=== PATIENT | female | born 1960 | race Caucasian/White ===

== ENCOUNTER 2024-02-05 10:07 | Emergency (ER) | payer OTHER, SELFPAY ==
--- NOTE | ~2024-02-05 | CT_ITS ---
CT of the Abdomen and Pelvis: Indication: Abdominal pain Technique: 2.5 mm axial scans were obtained through the abdomen and pelvis following intravenous adm inistration of 100 cc of Omnipaque 350. Dose reduction technique was used on this scan by utilizing a utomated exposure control and iterative reconstruction technique. The dose-length product (DLP) was 1 87.50 mGy-cm. Findings: Scans through the lung bases are unremarkable. Minimal pericardial effusion present. Small hepatic cysts are present. The spleen, pancreas, gallbladder, adrenals and kidneys are within n ormal limits. No evidence of aortic aneurysm. No lymphadenopathy. No bowel obstruction or bowel wall thickening. There is no evidence to suggest acute appendicitis. Images through the pelvis were performed. Urinary bladder unremarkable. No pelvic mass seen. Trace pe lvic ascites. Impression: Minimal pericardial effusion, otherwise unremarkable exam. Reviewed, dictated and finalized at location . Impression: Minimal pericardial effusion, otherwise unremarkable exam.
[2024-02-05 10:11] VITALS: BP 129/85; PULSE 67; RESP 18; TEMP 36.6; O2SAT 100
[2024-02-05 10:17] VITALS: BP 129/85; PULSE 62; RESP 13; O2SAT 98
[2024-02-05 10:26] LABS: Basophils Percent Auto 0.4 % (0.2-1.2); Eosinophils Absolute Auto 0.1 K/mm3 (0-0.3); Eosinophils Percent Auto 1.9 % (0-4.4); Hemoglobin 13.7 g/dL (12.0-15.0); Immature Granulocyte Absolute 0.01 K/mm3 (0.00-0.031); Immature Granulocyte Percent A 0.2 % (0-0.5); Lymphocytes Absolute Auto 1.88 K/mm3 (0.9-3.2); Lymphocytes Percent Auto 35.7 % (18.3-44.2); Mean Corpuscular HGB Conc 32.6 g/dl (32-36); Mean Corpuscular Volume 88.8 fl (80-100); Mean Platelet Volume 9.3 fl (7.4-10.4); Monocytes Absolute Auto 0.4 K/mm3 (0.1-0.6); Monocytes Percent Auto 8.2 % (2.6-8.5); Neutrophils Absolute Auto 2.8 K/mm3 (1.3-6.7); Neutrophils Percent Auto 53.6 % (45.5-73.1); Platelet Count Result 235 k/mm3 (150-375); Red Blood Count 4.73 M/mm3 (4.2-5.4); Red Cell Distribution Width 13.8 % (11.5-14.5); White Blood Count 5.3 K/mm3 (4.5-10.0)
[2024-02-05 10:34] LABS: Alanine Aminotransferase 10 U/L (6-35); Albumin Level 4.6 g/dL (3.5-5.1); Alkaline Phosphatase 47 U/L (38-126); Anion Gap 6 mmol/L (4-12); Aspartate Amino Transferase 24 U/L (14-36); Bilirubin,Total 0.5 mg/dL (0.2-1.3); Blood Urea Nitrogen 15 mg/dL (7-17); Calcium 9.7 mg/dL (8.4-10.2); Carbon Dioxide 28 mmol/L (22-30); Chloride 108 mmol/L (98-107); Estimated CRCL calculation 66 ml/min; Estimated Glomerular Filt Rate > 60; Glucose 91 mg/dL (65-110); Potassium 3.9 mmol/L (3.4-5.0); Sodium 142 mmol/L (137-145)
--- NOTE | 2024-02-05 10:35 | ED.GENADULT ---
HPI - General Adult General Chief complaint: Abdominal Pain Stated complaint: left flank pain Time Seen by Provider: 02/05/24 10:13 History of Present Illness HPI narrative: This is a 63-year-old female presenting with left upper quadrant abdominal pain. Pain started 2 days ago. It is a pain in the left upper quadrant. is worse with movement. It is worse when she pushes on her left rib cage. She denies any falls or impacts that she is aware of. She has no other symptoms such as fever chills nausea vomiting diarrhea chest pain difficulty breathing. She has not taken anything for pain control. Related Data Allergies Allergy/AdvReac Type Severity Reaction Status Date / Time No Known Allergies Allergy Unverified 10/22/14 23:44 [facility] Social History Social History Smoking status: Never smoker Alcohol intake: never Exam Narrative: APPEARANCE: No apparent distress. Head: atraumatic. EYES: EOMI, NOSE: Atraumatic NECK: Trachea midline RESPIRATORY: No increased rate of breathing, CTAB CARDIOVASCULAR: RRR, no peripheral edema ABDOMINAL: Tenderness palpation over the left ribcage at ribs 789. patient reports pain with movement. Abdomen is soft nontender no guarding rebound. MUSCULOSKELETAl: No obvious deformities NEURO: Alert. Moving 4/4 extremities SKIN:: Warm, dry. Normal color PSYCHIATRIC: Normal affect Course Vital Signs Vital signs: Vital Signs Temperature 97.8 F 02/05/24 10:11 Pulse Rate 67 02/05/24 10:11 Respiratory Rate 18 02/05/24 10:11 Blood Pressure 129/85 02/05/24 10:11 Pulse Oximetry 100 02/05/24 10:11 Oxygen Delivery Room Air 02/05/24 10:11 Temperature 97.8 F 02/05/24 10:11 Pulse Rate 62 02/05/24 10:17 Respiratory Rate 13 02/05/24 10:17 Blood Pressure 129/85 02/05/24 10:17 Pulse Oximetry 98 02/05/24 10:17 Oxygen Delivery Room Air 02/05/24 10:11 Medical Decision Making [facility] Narrative Medical decision making narrative: -Course: 63-year-old female presenting with left-sided abdominal/rib pain. Vital signs stable. Laboratory studies within normal limits. CT abdomen pelvis unremarkable. Patient declined pain medication. Results were discussed with the patient she is comfortable going home and taking [id number] pain medication. I discussed return precautions with both the patient and her . Follow-up with primary care physician. -DDX includes but is not limited to: Neoplasm, splenic infarct, , gastritis, MSK pain, PNA, -Co-morbidities complicating care: hyperlipidemia, breast cancer -Independent interpretation of studies: Labs reviewed within normal limits. CT abdomen pelvis unremarkable. -Shared decision making / Disposition: discharge Vital Signs Vital Signs: Vital Signs Temperature 97.8 F 02/05/24 10:11 Pulse Rate 67 02/05/24 10:11 Respiratory Rate 18 02/05/24 10:11 Blood Pressure 129/85 02/05/24 10:11 Pulse Oximetry 100 02/05/24 10:11 Oxygen Delivery Room Air 02/05/24 10:11 Temperature 97.8 F 02/05/24 10:11 Pulse Rate 62 02/05/24 10:17 Respiratory Rate 13 02/05/24 10:17 Blood Pressure 129/85 02/05/24 10:17 Pulse Oximetry 98 02/05/24 10:17 Oxygen Delivery Room Air 02/05/24 10:11 Lab Data 02/05/24 10:18 02/05/24 10:18 Labs: Lab Results 02/05/24 02/05/24 Range/Units 10:18 11:24 WBC 5.3 (4.5-10.0) K/mm3 RBC 4.73 (4.2-5.4) M/mm3 Hgb 13.7 (12.0-15.0) g/dL Hct 42.0 (37.0-47.0) % MCV 88.8 (80-100) fl MCH 29.0 (26-34) pg MCHC 32.6 (32-36) g/dl RDW 13.8 (11.5-14.5) % Plt Count 235 (150-375) k/mm3 MPV 9.3 (7.4-10.4) fl Immature Gran % (Auto) 0.2 (0-0.5) % Neut % (Auto) 53.6 (45.5-73.1) % Lymph % (Auto) 35.7 (18.3-44.2) % Stanley % (Auto) 8.2 (2.6-8.5) % Eos % (Auto) 1.9 (0-4.4) % Baso % (Auto) 0.4 (0.2-1.2) % Lymp
[2024-02-05 10:39] LABS: Appearance Urine Clear (Clear); Bacteria Urine None Seen /hpf; Bilirubin Urine Negative (Negative); Blood Urine Negative (Negative); Color Urine Yellow (Yellow); Glucose Urine UA Negative (Negative); Ketones Urine 1+ mg/dL (Negative); Leukocyte Esterase Ur Trace LEU/UL (Negative); Need Manual Microscopic Reviewed; Nitrate Urine Negative (Negative); Non Pathogenic Casts 0-2; Protein Urine Trace mg/dL (Negative); Specific Grav Ur 1.027 (1.001-1.035); Squamous Epithelial Cell Urine None Seen /hpf (Few); WBC Urine 0-5 /hpf (0-3)
[2024-02-05 10:40] LABS: Add Urine Microscopic? YES
[2024-02-05 11:39] LABS: Lactic Acid Reflex 0.8 mmol/L (0.7-2.0)
[2024-02-05 12:20] VITALS: BP 124/80; PULSE 53; RESP 16; O2SAT 100
== END 2024-02-05 12:20 | disposition home or self-care (01) ==
PROVIDERS: Emergency Provider Emergency Medicine
DX: R07.81 Pleurodynia (principal); R10.12 Left upper quadrant pain
CPT/HCPCS: 36415; 74177; 80053; 81001; 83605; 85025; 99284; Q9967

== ENCOUNTER 2024-11-13 10:44 | Emergency (ER) | payer OTHER, SELFPAY ==
--- NOTE | ~2024-11-13 | XR_ITS ---
XR wrist LT min 3V Ordering provider: Tyron Manzano MD History: . fall . Comparison: None. FINDINGS: BONES: Undisplaced fracture is seen in the distal metaphysis of the radius. Fracture in the ulnar sty loid is also noted. JOINT SPACES: Well maintained. SOFT TISSUES: Normal. IMPRESSION: Undisplaced fracture in the distal metaphysis of the left radius. Fracture ulnar styloid. Reviewed, dictated and finalized at location A. IMPRESSION: Undisplaced fracture in the distal metaphysis of the left radius. Fracture ulna r styloid.
--- OUTSIDE RECORDS SUMMARY | 2024-11-13 10:46 | XMS_ITS | Encounter Summary ---
Author Organization [facility] Address [facility] [place] [address] Care Team Providers Care Mysql Database Administrator Name Role Phone Eddie Lamb MD Primary Care Provider [phone] Encounter Details Date Type Department Care Team (Latest Contact Info) Description 06/30/2024 MyChart Message Enc [facility] [place] [address] [address] [address] [place] [address] [place] [address] [place] [address] [address] [place], [place] [id number] 07/07 Mammogram/Ultrasoun d Appt. Social History Tobacco Use Types Packs/Day Years Used Date Smoking Tobacco: Never Passive Smoke Exposure: Never Smokeless Tobacco: Never Comments:Counseled by Dr. Lien orozco. Alcohol Use Standard Drinks/Week Comments Never 0 (1 standard drink = 0.6 oz pur e alcohol) PHQ-2 Answer Date Recorded Patient Health Questionnaire-2 Score 4 04/19/2024 Comments No Sex and Gender Information Value Date Recorded Sex Assigned at Female 11/02/2024 8:58 AM [employer] PROGRAM DIRECTOR Legal Sex Female 1:23 PM [employer] PROGRAM DIRECTOR Gender Identity Female 11/02/2024 8:58 AM [employer] PROGRAM DIRECTOR Sexual Orientation Straight 11/02/2024 8: 58 AM [employer] PROGRAM DIRECTOR documented as of this encounter Plan of Treatment Upcoming Encounters Date Type Department Care Team (Late st Contact Info) Description 12/28/2024 12:30 PM CDT Appointment [facility] [place] [address] George Leonard MD [address] [place] [address] documented as of this encounter Visit Diagnoses Not on filedocumented in this encounter Additional Health Concerns Assessment Noted Time PHQ-9 Depression Total Score: 11 024 9:25 AM CDT documented as of this encounter Care Teams Mysql Database Administrator Relationship Specialty Start Date End Date Eddie Lamb MD [address] [facility] [address] [place] [address] PCP - General INTERNAL MEDICINE 10/19/23 documented as of this encounter
--- OUTSIDE RECORDS SUMMARY | 2024-11-13 10:46 | XMS_ITS | Clinical Summary ---
Author Organization [facility] [address] Address [address] [place] [phone] Care Team Providers Care Maxillofacial Pathology Name Role Phone George Leonard MD Unavailable [phone] Marii Aaron MD Unavailable [phone] Stiven Collins DO Unavailable [phone] Eddie Lamb MD Primary Care Provider [phone] Madison Stone MD Unavailable [phone] Allergies No known active allergies Medications ALPRAZolam (XANAX) 0.5 mg tablet Take 1 tablet (0.5 mg total) by mouth nightly as needed 02/10/2024 Active sertraline (ZOLOFT) 25 mg tablet Take 1 tablet (25 mg total) by mouth daily 02/10/2024 Active hydrOXYzine (ATARAX) 25 mg tablet 08/05/2024 Active Active Problems Problem Noted Date Diagnosed Date Prevention of chemotherapy-induced neutropenia 1 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 Oncology [address] [place] [phone] Kathy Jacobson RN Encounter for care related to vascular access port (Primary Dx); Malignant neoplasm of lower-inner quadrant of left breast in female, estrogen receptor negative (HCC) 08/29/2024 11:24 AM EMISSIONS TESTING AND REPAIR TECHNICIAN - 08/29/2024 11:59 PM EMISSIONS TESTING AND REPAIR TECHNICIAN Hospital Encounter [facility] Medical Office Building [address] [place] [id number] Malignant neoplasm of lower-inner quadrant of left breast in female, estrogen receptor negative (HCC) Discharge Disposition: Discharge to home or self care 08/15/2024 9:00 AM EMISSIONS TESTING AND REPAIR TECHNICIAN Infusion [facility] at [address] [place] [phone] Prevention of chemotherapy-induce d neutropenia (Primary Dx); Malignant neoplasm of lower-inner quadrant of left breast in female, estrogen receptor negative (HCC) 08/15/2024 8:30 AM EMISSIONS TESTING AND REPAIR TECHNICIAN Clinical Support [address] [address] Malignant neoplasm of lower-inner quadrant of left breast in female, estrogen receptor negative (HCC); Prevention of chemotherapy-induce d neutropenia from Last 3 Months Surgical History Surgery Date Site/Laterality Comments APPENDECTOMY 08/31/1980 - 08/30/1981 BREAST SURGERY 08/31/2006 - 08/30/2007 Bilateral augmentation MASTECTOMY Left PORTACATH PLACEMENT Medical History Medical History Date Comments Breast pain, right 12/29/2023 Mass of left breast 12/29/2023 Mixed hyperlipidemia 10/23/2023 Breast cancer (HCC) Depression Family History Medical History Relation Name Comments Smoke inhalation Father No Known Problems Maternal Grandfather No Known Problems Maternal Grandmother No Known Problems Mother Liver cancer Mother's Brother Stomach cancer Mother's Sister 1 Stomach cancer Mother's Sister 2 No Known Problems Paternal Grandfather No Known Problems Paternal Grandmother Relation Name Status Comments Father Maternal Grandfather Maternal Grandmother Mother Alive Mother's Brother Mother's Sister 1 Mother's Sister 2 Paternal Grandfather Paternal Grandmother Social History Tobacco Use Types Packs/Day Years Used Date Smoking Tobacco: Never Smokeless Tobacco: Never Tobacco Cessation:Counseling Given: Not Answered AUDIT-C Answer Date Recorded Q1: How often do you have a drink containing alcohol? Never 11/03/2024 Q2: How many drinks containi ng alcohol do you have on a typical day when you are drinking? Patient does not drink Q3: How often do you have si x or more drinks on one occasion? Never 11/03/2024 Personal Safety Answer Date Recorded Have you ever been in or are you currently in a harmful physical or emotional relationship or is someone making you feel afraid or unsafe? Denies 05/13/2024 Comments No Sex and Gender Information Value Date Recorded Sex Assigned at Not on file Legal Sex Female 4:27 PM EMISSIONS TESTING AND REPAIR TECHNICIAN Gender Identity Female 04/04/2024 8:02 PM CDT Sexual Orientation Straight 04/04/2024 8: 02 PM CDT 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 file Not on file Not on file Obstetrics History Last Filed Vital Signs Vital Sign Reading Time Taken Comments Blood Pressure 122/75 08/15/2024 9:03 AM EMISSIONS TESTING AND REPAIR TECHNICIAN Pulse 97 08/15/2024 9:03 AM EMISSIONS TESTING AND REPAIR TECHNICIAN Temperature 36.6 C (97.9 F) 08/15/2024 9:03 AM EMISSIONS TESTING AND REPAIR TECHNICIAN Respiratory Rate 16 08/15/2024 9:03 AM EMISSIONS TESTING AND REPAIR TECHNICIAN Oxygen Saturation 98% 08/15/2024 9:03 AM EMISSIONS TESTING AND REPAIR TECHNICIAN Inhaled Oxygen Concentration - - Weight 51 kg (112 lb 7 oz) 11/03/2024 9:38 AM CS T Height 162.6 cm (5' 4 ) 11/03/2024 9:38 AM EMISSIONS TESTING AND REPAIR TECHNICIAN Body Mass Index 19.3 11/03/2024 9:38 AM EMISSIONS TESTING AND REPAIR TECHNICIAN Plan of Treatment Upcoming Encounters Date Type Department Care Team (Latest Contact Info) Description 11/14/2024 11:10 AM CDT Hospital Encounter [address] [address] George Leonard MD [address] [place] [phone] 11/14/2024 11:10 AM CDT Anesthesia Event [facility] OR [address] [place] [address] Paul Monte MD [address] [address] 11/14/2024 11:10 AM CDT - 11/14/2024 12:10 PM CDT Surgery [facility] OR [address] [place] [address] George Leonard MD [address] [place] [phone] REMOVAL PORT A CATH Scheduled Procedures Name Priority Associated Diagnoses Date/Ti me REMOVAL PORT A CATH NON USE 11/14/2024 11:10 AM CDT Health Maintenance Due Date Last Done Comments Cervical Cancer Screening 1960 Colon Cancer Screening-Colonoscopy 1960 Depression Screening 1960 Hepatitis C Screening 1960 Hepatitis B Screening 1978 Regular Well Visit/Exam 18-64 1978 Zoster Vaccine (1 of 2) 2010 Covid-19 Vaccine (2023-2 5 season) 2024 02/09/2021, 01/19/2021 Influenza Vaccine (#1) 2024 Breast Cancer Screening-Mammogram 12/28/2024 12/29/2023, 12/29/2023 DTaP/Tdap/Td Vaccine (2 - Td or Tdap) 04/19/2034 04/19/2024 Pneumococcal vaccine <65 Aged Out No longer eligible based on patient's age to complete this topic Medical Devices Implanted Type Area Wall To Wall Carpet Installer Device Identifier Shelf Expiration Date Model / Serial / Lot Breast Implant Bilateral: Breast Dom Michael Powerport Mri Airguard 8fr 1 Lumen Attachable Catheter Latex Free [id number] - [id number] Implanted:Qty: 1 on 05/13/2024 by Miguel Rodriguez MD at [facility] Right: Chest Dom [place] [id number] 11/28/2025 [id number] / / [id number] [employer] Billy Sealant Fibrin Patch [place] Set Frozen Prefilled Syringe Artiss 4ml [id number] - [id number] Implanted:Qty: 1 on 05/13/2024 by Miguel Rodriguez MD at [facility] Left: Breast [employer] Billy 08/30/2025 [id number] / / [id number] [employer] Cortiva 9.2x19.2cm [id number] - [id number] - [id number] Implanted:Qty: 1 on 05/13/2024 by Miguel Rodriguez MD at [facility] Left: Breast [employer] [id number] 03/30/2029 [id number] / [id number] / [id number] [employer] Cortiva 9.2x19.2cm [id number] - [id number] - [id number] Implanted:Qty: 1 on 05/13/2024 by Miguel Rodriguez MD at [facility] Left: Breast [employer] [id number] 03/30/2029 [id number] / [id number] / [id number] [employer] Implant Breast Round Moderate Projection Plus Smooth Opus Luxe 305cc Silicone Gel [id number] - [id number] - [id number] Implanted:Qty: 1 on 05/13/2024 by Miguel Rodriguez MD at [facility] Left: Breast [employer] [id number] 11/16/2025 [id number] / [id number] / Procedures Procedure Name Priority Date/Time Associated Diagnosis Comments CT CHEST ABDOMEN PELVIS W CONTRAST Schedule Routine, Read Routine (OP Routine) 08/29/2024 11:40 AM EMISSIONS TESTING AND REPAIR TECHNICIAN Malignant neoplasm of lower-inner quadrant of left breast in female, estrogen receptor negative (HCC) EGFR STAT 08/15/2024 8:52 AM EMISSIONS TESTING AND REPAIR TECHNICIAN Malignant neoplasm of lower-inner quadrant of left breast in female, estrogen receptor negative (HCC) Prevention of chemotherapy-induc ed neutropenia DIFFERENTIAL AUTO STAT 08/15/2024 8:5 2 AM EMISSIONS TESTING AND REPAIR TECHNICIAN Malignant neoplasm of lower-inner quadrant of left breast in female, estrogen receptor negative (HCC) Prevention of chemotherapy-induc ed neutropenia CBC WITH AUTO DIFFERENTIAL STAT 08/15/2024 8:52 AM EMISSIONS TESTING AND REPAIR TECHNICIAN Malignant neoplasm of lower-inner quadrant of left breast in female, estrogen receptor negative (HCC) Prevention of chemotherapy-induc ed neutropenia COMPREHENSIVE METABOLIC PANEL STAT 08/15/2024 8:52 AM EMISSIONS TESTING AND REPAIR TECHNICIAN Malignant neoplasm of lower-inner quadrant of left breast in female, estrogen receptor negative (HCC) Prevention of chemotherapy-induc ed neutropenia from Last 3 Months Results * CT Chest Abdomen Pelvis W Contrast (08/29/2024 11:40 AM EMISSIONS TESTING AND REPAIR TECHNICIAN) Anatomical Region Laterality Modality Body N/A Computed Tomogra phy 09/02/2024 1:41 PM EMISSIONS TESTING AND REPAIR TECHNICIAN Narrative 09/02/2024 1:48 PM EMISSIONS TESTING AND REPAIR TECHNICIAN EXAM DESCRIPTION: CT CHEST ABDOMEN PELVIS W CONTRAST REASON FOR STUDY: monitoring breast cancer Monitoring breast cancer. Finished chemo 2 weeks ago per pt. No complaints. Hx of left mastectomy, appy. TECHNIQUE: CT scan of the chest, abdomen, and pelvis performed with intravenous and without oral contrast using helical scanning technique with dynamic intravenous contrast injection. Reconstructed coronal and sagittal MPR images reviewed. All images stored on PACS. Automated exposure control was used as a dose optimization technique for this examination. CONTRAST TYPE/DOSE: 100mL of IOVERSOL 350 MG IODINE/ML INTRAVENOUS SYRINGE injected via intravenous COMPARISON: None available FINDINGS: CHEST LUNGS: 3 mm nodule right lower lobe. Image 74 series 2. Probably benign. No suspicious nodule. Recommendations based on Fleischner society guidelines, in both high and low risk patients. No pneumonia. PLEURA: No effusion. No pneumothorax. MEDIASTINUM/SAEID: No identified masses or abnormal nodes. HEART: Heart size is normal with no pericardial effusion. VASCULATURE CHEST: No thoracic aortic aneurysm or dissection. AXILLA: No adenopathy. CHEST WALL: Bilateral breast implants. HARDWARE/LINES/TUBES: Right port catheter with the tip extending to the SVC. MUSCULOSKELETAL CHEST: No significant abnormality. ABDOMEN/PELVIS LIVER: Hemangioma in hepatic segment 8. There are few small cysts within the liver and too small to characterize hypoattenuating lesions likely cysts. GALLBLADDER: Normal BILE DUCTS: No intrahepatic or extrahepatic ductal dilatation. SPLEEN: Normal size. No focal lesions. PANCREAS: No identified cystic or solid masses. No significant calcifications. No adjacent inflammation or peripancreatic fluid collections. Pancreatic duct not dilated. ADRENALS: Normal. KIDNEYS/URINARY TRACT: No identified significant cystic or solid masses. No visualized stones. No hydronephrosis or hydroureter. Symmetric enhancement. Urinary bladder is unremarkable. GI: No dilated bowel loops. No obvious wall thickening. Normal appendix. No significant diverticular disease. PERITONEUM: No ascites or free air. RETROPERITONEUM: No mass or adenopathy. REPRODUCTIVE: No significant abnormality. VASCULATURE ABDOMEN: No abdominal aortic aneurysm. MUSCULOSKELETAL ABDOMEN PELVIS: Small hemangioma in L5. No suspicious osseous lesion. OTHER: No significant abnormality. IMPRESSION: No acute abnormality. THIS IS AN ELECTRONICALLY VERIFIED FINAL REPORT 09/02/2024 1:48 PM - Electronically signed by Jose J Reno M.D. KN: [email or web address] Report ID: [id number] Reading Location: [id number] Procedure Note Jose J Reno MD - 09/02/2024 EXAM DESCRIPTION: CT CHEST ABDOMEN PELVIS W CONTRAST REASON FOR STUDY: monitoring breast cancer Monitoring breast cancer. Finished chemo 2 weeks ago per pt. Nocomplaints. Hx of left mastectomy, appy. TECHNIQUE: CT scan of the chest, abdomen, and pelvis performed with intravenous and without oral contrast using helical scanning techniquewith dynamic intravenous contrast injection. Reconstructed coronal and sagittalMPR images reviewed. All images stored on PACS. Automated exposure control was used as a dose optimization technique for this examination. CONTRAST TYPE/DOSE: 100mL of IOVERSOL 350 MG IODINE/ML INTRAVENOUS SYRINGE injected via intravenous COMPARISON: None available FINDINGS: CHEST LUNGS: 3 mm nodule right lower lobe. Image 74 series 2. Probablybenign. No suspicious nodule. Recommendations based on Fleischner society guidelines, in both high andlow risk patients. No pneumonia. PLEURA: No effusion. No pneumothorax. MEDIASTINUM/SAEID: No identified masses or abnormal nodes. HEART: Heart size is normal with no pericardial effusion. VASCULATURE CHEST: No thoracic aortic aneurysm or dissection. AXILLA: No adenopathy. CHEST WALL: Bilateral breast implants. HARDWARE/LINES/TUBES: Right port catheter with the tip extending to theSVC. MUSCULOSKELETAL CHEST: No significant abnormality. ABDOMEN/PELVIS LIVER: Hemangioma in hepatic segment 8. There are few small cystswithin the liver and too small to characterize hypoattenuating lesions likelycysts. GALLBLADDER: Normal BILE DUCTS: No intrahepatic or extrahepatic ductal dilatation. SPLEEN: Normal size. No focal lesions. PANCREAS: No identified cystic or solid masses. No significant calcifications. No adjacent inflammation or peripancreatic fluidcollections. Pancreatic duct not dilated. ADRENALS: Normal. KIDNEYS/URINARY TRACT: No identified significant cystic or solid masses.No visualized stones. No hydronephrosis or hydroureter. Symmetricenhancement. Urinary bladder is unremarkable. GI: No dilated bowel loops. No obvious wall thickening. Normalappendix. No significant diverticular disease. PERITONEUM: No ascites or free air. RETROPERITONEUM: No mass or adenopathy. REPRODUCTIVE: No significant abnormality. VASCULATURE ABDOMEN: No abdominal aortic aneurysm. MUSCULOSKELETAL ABDOMEN PELVIS: Small hemangioma in L5. No suspicious osseous lesion. OTHER: No significant abnormality. IMPRESSION: No acute abnormality. THIS IS AN ELECTRONICALLY VERIFIED FINAL REPORT 09/02/2024 1:48 PM - Electronically signed by Jose J Reno M.D. KN: [email or web address] Report ID: [id number] Reading Location: [place] [address] us Stiven Collins DO IMG CT PROCEDURES Final Resu lt * eGFR (08/15/2024 8:52 AM EMISSIONS TESTING AND REPAIR TECHNICIAN) eGFR >90 >=60 mL/min/1. 73 m2 Comment: Interpretive Data Reference Interval Normal >/= 90 mL/min/1.73m2 Mildly decreased* 60 - 89 mL/min/1.73m2 Mildly to moderately decreased 45 - 59 mL/min/1.73m2 Moderately to severely decreased 30 - 44 mL/min/1.73m2 Severely decreased 15 - 29 mL/min/1.73m2 Kidney Failure < 15 mL/min/1.73m2 *Relative to young adult level Estimated glomerular filtration rate is determined by the 2020 CKD-EPI equation recommended by the National Kidney Foundation (A Unifying Approach to GFR Estimation: Recommendations of the NKF-ASK Task Force on Reassessing the Inclusion of Race in Diagnosing Kidney Disease, JASN 2020). The CKD-EPI equation should not be used for patients with unstable renal function and has not been validated in children and those over 70. Current interpretive data was last reviewed 2021. Testing performed by: [address] [address] Blood 08/15/2024 8:52 AM EMISSIONS TESTING AND REPAIR TECHNICIAN 08/15/2024 8:55 AM EMISSIONS TESTING AND REPAIR TECHNICIAN Stiven Collins DO LAB BLOOD ORDERABLES Final R esult [facility] [address] [facility] Department [place] [address] * (ABNORMAL) Differential, auto (08/15/2024 8:52 AM EMISSIONS TESTING AND REPAIR TECHNICIAN) Neutrophil abs 8.3(H) 1.5 - 6.5 K/cumm Comment:Testing performed by : [address] [address] Imm gran abs 0.1 0.0 - 0.1 K/cumm [facility] Comment:Testing performed by : [address] [address] Lymphocyte abs 1.2 0.8 - 3.3 K/cumm [facility] Comment:Testing performed by : [address] [address] Monocyte abs 0.5 0.2 - 0.8 K/cumm [facility] Comment:Testing performed by : [address] [address] Eosinophil abs 0.0 0.0 - 0.5 K/cumm [facility] Comment:Testing performed by : [address] [address] Basophil abs 0.0 0.0 - 0.1 K/cumm [facility] Comment:Testing performed by : [address] [address] Neutrophil pct 82.7 % [facility] Comment: Interpretive Data Percent cell count reference ranges are not reported, since discordance with absolute values may lead to misinterpretation of CBC data. Current Interpretive Data was last revised on 2017. Testing performed by: [address] [address] Imm gran pct 0.6 % [facility] Comment: Interpretive Data Percent cell count reference ranges are not reported, since discordance with absolute values may lead to misinterpretation of CBC data. Current Interpretive Data was last revised on 2017. Testing performed by: [address] [address] Lymphocyte pct 11.9 % [facility] Comment: Interpretive Data Percent cell count reference ranges are not reported, since discordance with absolute values may lead to misinterpretation of CBC data. Current Interpretive Data was last revised on 2017. Testing performed by: [address] [address] Monocyte pct 4.7 % [facility] Comment: Interpretive Data Percent cell count reference ranges are not reported, since discordance with absolute values may lead to misinterpretation of CBC data. Current Interpretive Data was last revised on 2017. Testing performed by: [address] [address] Eosinophil pct 0.0 % [facility] Comment: Interpretive Data Percent cell count reference ranges are not reported, since discordance with absolute values may lead to misinterpretation of CBC data. Current Interpretive Data was last revised on 2017. Testing performed by: [address] [address] Basophil pct 0.1 % [facility] Comment: Interpretive Data Percent cell count reference ranges are not reported, since discordance with absolute values may lead to misinterpretation of CBC data. Current Interpretive Data was last revised on 2017. Testing performed by: [address] [address] Blood 08/15/2024 8:52 AM EMISSIONS TESTING AND REPAIR TECHNICIAN 08/15/2024 8:55 AM EMISSIONS TESTING AND REPAIR TECHNICIAN Stiven Collins DO LAB BLOOD ORDERABLES Final R esult [facility] [address] [facility] Department [place] [address] * (ABNORMAL) CBC with auto differential (08/15/2024 8:52 AM EMISSIONS TESTING AND REPAIR TECHNICIAN) WBC 10.0(H) 3.8 - 9.9 K/cumm Comment:Testing performed by : [address] [address] Hgb 11.2(L) 11.9 - 15.5 g/dL [facility] Comment:Testing performed by : [address] [address] Hct 34.0(L) 35.6 - 45.5 % [facility] Comment:Testing performed by : [address] [address] Plt 270 150 - 400 K/cumm [facility] Comment:Testing performed by : [address] [address] MPV 8.6(L) 9.1 - 12.3 fL [facility] Comment:Testing performed by : [address] [address] RBC 3.95 3.90 - 5.20 M/cumm [facility] Comment:Testing performed by : [address] [address] MCV 86.1 81.3 - 96.4 fL [facility] Comment:Testing performed by : [address] [address] MCH 28.4 27.1 - 33.3 pg [facility] Comment:Testing performed by : [address] [address] MCHC 32.9 32.3 - 35.7 g/dL [facility] Comment:Testing performed by : [facility], [address] [place] [address]., [address] RDW CV 16.8(H) 11.1 - 14.9 % [facility] Comment:Testing performed by : [address] [address] RDW SD 52.2(H) 35.7 - 48.1 fL [facility] Comment:Testing performed by : [address] [address] NRBC abs 0.00 0.00 - 0.01 K/cumm [facility] Comment:Testing performed by : [address] [address] Blood 08/15/2024 8:52 AM EMISSIONS TESTING AND REPAIR TECHNICIAN 08/15/2024 8:55 AM EMISSIONS TESTING AND REPAIR TECHNICIAN Stiven Collins DO LAB BLOOD ORDERABLES Final R esult [facility] Department [place] [address] * (ABNORMAL) Comprehensive metabolic panel (08/15/2024 8:52 AM EMISSIONS TESTING AND REPAIR TECHNICIAN) Sodium 141 135 - 145 mmol/L Comment:Testing performed by : [address] [address] Potassium, pl 3.7 3.3 - 4.9 mmol/L [facility] Comment:Testing performed by : [address] [address] Chloride 106 97 - 110 mmol/L [facility] Comment:Testing performed by : [address] [address] CO2 24 22 - 32 mmol/L [facility] Comment:Testing performed by : [address] [address] Anion gap 11 2 - 15 mmol/L [facility] Comment:Testing performed by : [address] [address] BUN 18 6 - 25 mg/dL [facility] Comment:Testing performed by : [address] [address] Creatinine 0.50(L) 0.60 - 1.10 mg/dL [facility] Comment:Testing performed by : [address] [address] Glucose 186 70 - 199 mg/dL [facility] Comment: Interpretive Data Fasting glucose >/= 126 mg/dl is diagnostic for diabetes. Fasting is defined as no caloric intake for at least 8 hours. Fasting glucose between 100 mg/dl to 125 mg/dl is diagnostic of prediabetes. In a patient with classic symptoms of hyperglycemia or hyperglycemic crisis, a random glucose >/= 200 mg/dl is diagnostic for diabetes. In the absence of unequivocal hyperglycemia, results should be confirmed by repeat testing. The classification and Diagnosis of Diabetes Diabetes Care 2021; 46: S19-S40. Current interpretive data was last revised 2022. Testing performed by: [address] [address] Calcium 9.2 8.5 - 10.3 mg/dL [facility] Comment:Testing performed by : [address] [address] Bilirubin, total 0.2 0.1 - 1.2 mg/dL [facility] Comment:Testing performed by : [address] [address] Protein, pl 6.3(L) 6.5 - 8.5 g/dL [facility] Comment:Testing performed by : [address] [address] Albumin 4.0 3.5 - 5.0 g/dL [facility] Comment:Testing performed by : [address] [address] Alk phos 58 40 - 130 Units/L [facility] Comment:Testing performed by : [address] [address] ALT 12 7 - 45 Units/L [facility] Comment:Testing performed by : [address] [address] AST 13 10 - 45 Units/L [facility] Comment:Testing performed by : [address] [place]., [address] Blood 08/15/2024 8:52 AM EMISSIONS TESTING AND REPAIR TECHNICIAN 08/15/2024 8:55 AM EMISSIONS TESTING AND REPAIR TECHNICIAN Stiven Collins DO LAB BLOOD ORDERABLES Final R esult [facility] [address] [facility] Department [place] [address] from Last 3 Months Insurance [facility] CLAIMS [facility] CLAIMS [facility] CLAIMS Advance Directives For more information, please contact: [phone] * Full Code (Latest Code Status on File) Date Activated Date Inactivated Comments 05/13/2024 2:46 PM 05/14/2024 5:53 PM Care Teams Maxillofacial Pathology Relationship Specialty Start Date End Date Eddie Lamb MD [address] [place], [place] [phone] PCP - General Internal Medicine 03/22/24 George Leonard MD [address] [facility] [address] [place], [place] [phone] Consulting Physician Surgery 01/29/24 Marii Aaron MD [address] [facility] 160 [place], [place] [address] Radiation Oncologist Radiation Oncology 01/29/24 Stiven Collins DO [address] [facility] 180 [place], [place] [address] Medical Oncologist/Leveler Helper Hematology and Oncology 02/04/24 Madison Stone MD [address] [place], [place] [address] Nurse Practitioner 05/16/24
--- OUTSIDE RECORDS SUMMARY | 2024-11-13 10:46 | XMS_ITS ---
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 05/13/2024 Malignant neoplasm of left female breast 024 Malignant neoplasm of lower- inner quadrant of left breast in female, estrogen receptor negative 02/04/2024 Cancer Staging:Clinical stage from 02/04/2024:Stage IB(cT1c, cN0, cM0, G3, ER-, IN-, HER2-) - Signed by Marii Aaron MD on 02/04/2024 Breast pain, right 12/29/2023 Mass of left breast 12/29/2023 Mixed hyperlipidemia 10/23/2023 Current Treatment and Therapy Plans IV Maintenance Therapy Plan* Plan Start Date:06/13/2024 Plan Provider:Stiven Collins DO Linked Problems Malignant neoplasm of left f emale breast, unspecified estrogen receptor status, unspecified site of breast (HCC) Treatment Medications No medications scheduled. TC: (DOCEtaxel / Cyclophosphamide) 21 Day Cycles - Breast* Plan Start Date: 05/23/2024 Plan Provider:Stiven Collins, Linked Problems Malignant neoplasm of lower- inner quadrant of left breast in female, estrogen receptor negative (HCC)Prevention of chemotherapy-induced neutropenia Treatment Medications cycloPHOSphamide IVPB in 250 mL (vial 200 mg/mL)(J9073)dexAMETHasone (DECADRON)DOCEtaxel (TAXOTERE) IVPB in 250 mL (vial 20mg/mL) Past Treatment and Therapy Plans No past plan information found. Lifetime Dose Tracking * Chemical Lifetime Dose Automatic Entry Manual Entr y Fluoro Time 0.233 minutes 0.233 minutes 0 minutes cyclophosphamide 2,367.892 mg/m2 (3,540 mg) 2,367.892 mg/m2 (3,540 mg) 0 mg/m2 (0 mg) Air kerma at the reference point (Ka,r) 0.8 mGy 0.8 mGy 0 mGy
--- OUTSIDE RECORDS SUMMARY | 2024-11-13 10:46 | XMS_ITS | Referral Summary ---
Author Organization [facility] [place] [address] [place] Address [address] [place] [address] Care Team Providers Care Natural Resources Engineer Name Role Phone George Leonard MD Unavailable [phone] Marii Aaron MD Unavailable [phone] Stiven Collins DO Unavailable [phone] Eddie Lamb MD Primary Care Provider [phone] Madison Stone MD Unavailable [phone] Encounters Date Type Department Care Team Description 09/05/2024 Orders Only [facility] Oncology [facility] [address] [place] [phone] Kathy Jacobson RN Encounter for care related to vascular access port (Primary Dx); Malignant neoplasm of lower-inner quadrant of left breast in female, estrogen receptor negative (HCC) 08/29/2024 11:24 AM FORGESMITH - 08/29/2024 11:59 PM FORGESMITH Hospital Encounter [facility] Medical Office Building [address] [facility] [place], [place] [id number] Malignant neoplasm of lower-inner quadrant of left breast in female, estrogen receptor negative (HCC) Discharge Disposition: Discharge to home or self care 08/15/2024 8:30 AM FORGESMITH Clinical Support [facility] at [address] [address] Malignant neoplasm of lower-inner quadrant of left breast in female, estrogen receptor negative (HCC); Prevention of chemotherapy-induce d neutropenia 08/15/2024 9:00 AM [facility] at [address] [phone] Prevention of chemotherapy-induce d neutropenia (Primary Dx); Malignant neoplasm of lower-inner quadrant of left breast in female, estrogen receptor negative (HCC) from Last 3 Months Allergies No known active allergies Medications ALPRAZolam [...] from 02/04/2024:Stage IB(cT1c, cN0, cM0, G3, ER-, NC-, HER2-) - Signed by Marii Aaron MD on 02/04/2024 Breast pain, right 12/29/2023 Mass of left breast 12/29/2023 Mixed hyperlipidemia 10/23/2023 Social History Tobacco Use Types Packs/Day Years [...] on file Legal Sex Female 4:27 PM FORGESMITH Gender Identity Female 04/04/2024 8:02 PM CDT Sexual Orientation Straight 04/04/2024 8: 02 PM CDT 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 file Not on file Not on file Last Filed Vital Signs Vital Sign Reading Time Taken Comments Blood Pressure 122/75 08/15/2024 9:03 AM FORGESMITH Pulse 97 08/15/2024 9:03 AM FORGESMITH Temperature 36.6 C (97.9 F) 08/15/2024 9:03 AM FORGESMITH Respiratory Rate 16 08/15/2024 9:03 AM FORGESMITH Oxygen Saturation 98% 08/15/2024 9:03 AM FORGESMITH Inhaled Oxygen Concentration - - Weight 51 kg (112 lb 7 oz) 11/03/2024 9:38 AM CS T Height 162.6 cm (5' 4 ) 11/03/2024 9:38 AM FORGESMITH Body Mass Index 19.3 11/03/2024 9:38 AM FORGESMITH Plan of Treatment Upcoming Encounters Date Type Department Care Team (Latest Contact Info) Description 11/14/2024 11:10 AM CDT Hospital Encounter [facility] [place] [address] [place] [address] George Leonard MD [address] [place] [phone] 11/14/2024 11:10 AM CDT Anesthesia Event [facility] [place] [address] [place] [address] Paul Monte MD [address] [place] [address] 11/14/2024 11:10 AM CDT - 11/14/2024 12:10 PM CDT Surgery [facility] OR [address] [place] [address] George Leonard MD [address] [place] [address] REMOVAL PORT A CATH Scheduled Procedures Name Priority Associated Diagnoses Date/Ti me REMOVAL PORT A CATH NON USE 11/14/2024 11:10 AM CDT Medical Devices Implanted Type Area Customer Service Professional Device Identifier Shelf Expiration Date Model / Serial / Lot Breast Implant Bilateral: Breast Dom Michael Powerport Mri Airguard 8fr 1 Lumen Attachable Catheter Latex Free [id number] - [id number] Implanted:Qty: 1 on 05/13/2024 by Miguel Rodriguez MD at [facility] Right: Chest Dom [place] [id number] 11/28/2025 [id number] / / [id number] [employer] Billy Sealant Fibrin Patch [place] Set Frozen Prefilled Syringe Artiss 4ml [id number] - [id number] Implanted:Qty: 1 on 05/13/2024 by Miguel Rodriguez MD at [facility] Left: Breast [employer] Billy 08/30/2025 [id number] / / [id number] [employer] Cortiva 9.2x19.2cm [id number] - [id number] - [id number] Implanted:Qty: 1 on 05/13/2024 by Miguel Rodriguez MD at [facility] Left: Breast [employer] [id number] 03/30/2029 [id number] / [id number] / [id number] [employer] Cortiva 9.2x19.2cm [id number] - [id number] - [id number] Implanted:Qty: 1 on 05/13/2024 by Miguel Rodriguez MD at [facility] Left: Breast [employer] [id number] 03/30/2029 [id number] / [id number] / [id number] [employer] Implant Breast Round Moderate Projection Plus Smooth Opus Luxe 305cc Silicone Gel [id number] - [id number] - [id number] Implanted:Qty: 1 on 05/13/2024 by Miguel Rodriguez MD at [facility] Left: Breast [employer] [id number] 11/16/2025 [id number] / [id number] / Procedures Procedure Name Priority Date/Time Associated Diagnosis Comments CT CHEST ABDOMEN PELVIS W CONTRAST Schedule Routine, Read Routine (OP Routine) 08/29/2024 11:40 AM FORGESMITH Malignant neoplasm of lower-inner quadrant of left breast in female, estrogen receptor negative (HCC) EGFR STAT 08/15/2024 8:52 AM FORGESMITH Malignant neoplasm of lower-inner quadrant of left breast in female, estrogen receptor negative (HCC) Prevention of chemotherapy-induc ed neutropenia DIFFERENTIAL AUTO STAT 08/15/2024 8:5 2 AM FORGESMITH Malignant neoplasm of lower-inner quadrant of left breast in female, estrogen receptor negative (HCC) Prevention of chemotherapy-induc ed neutropenia CBC WITH AUTO DIFFERENTIAL STAT 08/15/2024 8:52 AM FORGESMITH Malignant neoplasm of lower-inner quadrant of left breast in female, estrogen receptor negative (HCC) Prevention of chemotherapy-induc ed neutropenia COMPREHENSIVE METABOLIC PANEL STAT 08/15/2024 8:52 AM FORGESMITH Malignant neoplasm of lower-inner quadrant of left breast in female, estrogen receptor negative (HCC) Prevention of chemotherapy-induc ed neutropenia from Last 3 Months Results * CT Chest Abdomen Pelvis W Contrast (08/29/2024 11:40 AM FORGESMITH) Anatomical Region Laterality Modality Body N/A Computed Tomogra phy 09/02/2024 1:41 PM FORGESMITH Narrative 09/02/2024 1:48 PM FORGESMITH EXAM DESCRIPTION: CT CHEST ABDOMEN PELVIS W [...] signed by Jose J Reno M.D. KN: WIN Report ID: [id number] Reading Location: [id number] Procedure Note Jose J Reno MD - [...] signed by Jose J Reno M.D. KN: WIN Report ID: [id number] Reading Location: [place] [address] us Stiven Collins DO IMG CT PROCEDURES Final Resu lt * eGFR (08/15/2024 8:52 AM FORGESMITH) eGFR >90 >=60 mL/min/1. 73 m2 Comment: [...] was last reviewed 2021. Testing performed by: [address] [address] Blood 08/15/2024 8:52 AM FORGESMITH 08/15/2024 8:55 AM FORGESMITH us Stiven Collins DO LAB BLOOD ORDERABLES Final R esult [facility] [address] [facility] [place] [address] * (ABNORMAL) Differential, auto (08/15/2024 8:52 AM FORGESMITH) Pathologist [facility] Neutrophil abs 8.3(H) 1.5 - 6.5 K/cumm Comment:Testing performed by : [address] [address] Imm gran abs 0.1 0.0 - 0.1 K/cumm [facility] Comment:Testing performed by : [address] [address] Lymphocyte abs 1.2 0.8 - 3.3 K/cumm [facility] Comment:Testing performed by : [address] [address] Monocyte abs 0.5 0.2 - 0.8 K/cumm [facility] Comment:Testing performed by : [address] [address] Eosinophil abs 0.0 0.0 - 0.5 K/cumm [facility] Comment:Testing performed by : [address], [place]., [address] Basophil abs 0.0 0.0 - 0.1 K/cumm [facility] Comment:Testing performed by : [address] [address] Neutrophil pct 82.7 % [facility] Comment: Interpretive Data Percent cell count reference ranges are not reported, since discordance with absolute values may lead to misinterpretation of CBC data. Current Interpretive Data was last revised on 2017. Testing performed by: [address] [address] Imm gran pct 0.6 % [facility] Comment: Interpretive Data Percent cell count reference ranges are not reported, since discordance with absolute values may lead to misinterpretation of CBC data. Current Interpretive Data was last revised on 2017. Testing performed by: [address] [address] Lymphocyte pct 11.9 % [facility] Comment: Interpretive Data Percent cell count reference ranges are not reported, since discordance with absolute values may lead to misinterpretation of CBC data. Current Interpretive Data was last revised on 2017. Testing performed by: [address] [address] Monocyte pct 4.7 % [facility] Comment: Interpretive Data Percent cell count reference ranges are not reported, since discordance with absolute values may lead to misinterpretation of CBC data. Current Interpretive Data was last revised on 2017. Testing performed by: [address] [address] Eosinophil pct 0.0 % [facility] Comment: Interpretive Data Percent cell count reference ranges are not reported, since discordance with absolute values may lead to misinterpretation of CBC data. Current Interpretive Data was last revised on 2017. Testing performed by: [address] [address] Basophil pct 0.1 % [facility] Comment: Interpretive Data Percent cell count reference ranges are not reported, since discordance with absolute values may lead to misinterpretation of CBC data. Current Interpretive Data was last revised on 2017. Testing performed by: [address] [address] Blood 08/15/2024 8:52 AM FORGESMITH 08/15/2024 8:55 AM FORGESMITH Stiven Collins DO LAB BLOOD ORDERABLES Final R esult [facility] [place] [address] * (ABNORMAL) CBC with auto differential (08/15/2024 8:52 AM FORGESMITH) WBC 10.0(H) 3.8 - 9.9 K/cumm Comment:Testing performed by : [address] [address] Hgb 11.2(L) 11.9 - 15.5 g/dL [facility] Comment:Testing performed by : [address] [address] Hct 34.0(L) 35.6 - 45.5 % [facility] Comment:Testing performed by : [address] [address] Plt 270 150 - 400 K/cumm [facility] Comment:Testing performed by : [address] [address] MPV 8.6(L) 9.1 - 12.3 fL [facility] Comment:Testing performed by : [address] [address] RBC 3.95 3.90 - 5.20 M/cumm [facility] Comment:Testing performed by : [address] [address] MCV 86.1 81.3 - 96.4 fL [facility] Comment:Testing performed by : [address] [address] MCH 28.4 27.1 - 33.3 pg [facility] Comment:Testing performed by : [address] [address] MCHC 32.9 32.3 - 35.7 g/dL [facility] Comment:Testing performed by : [address] [address] RDW CV 16.8(H) 11.1 - 14.9 % [facility] Comment:Testing performed by : [address] [address] RDW SD 52.2(H) 35.7 - 48.1 fL [facility] Comment:Testing performed by : [address] [address] NRBC abs 0.00 0.00 - 0.01 K/cumm [facility] Comment:Testing performed by : [address] [address] Blood 08/15/2024 8:52 AM FORGESMITH 08/15/2024 8:55 AM FORGESMITH Stiven Collins DO LAB BLOOD ORDERABLES Final R esult [facility] [facility] Department of Laboratories [place], [place] [id number] * (ABNORMAL) Comprehensive metabolic panel (08/15/2024 8:52 AM FORGESMITH) Sodium 141 135 - 145 mmol/L Comment:Testing performed by : [address] [address] Potassium, pl 3.7 3.3 - 4.9 mmol/L [facility] Comment:Testing performed by : [address] [address] Chloride 106 97 - 110 mmol/L [facility] Comment:Testing performed by : [address] [address] CO2 24 22 - 32 mmol/L [facility] Comment:Testing performed by : [address] [address] Anion gap 11 2 - 15 mmol/L [facility] Comment:Testing performed by : [address] [address] BUN 18 6 - 25 mg/dL [facility] Comment:Testing performed by : [address] [address] Creatinine 0.50(L) 0.60 - 1.10 mg/dL [facility] Comment:Testing performed by : [address] [address] Glucose 186 70 - 199 mg/dL [facility] [...] was last revised 2022. Testing performed by: [address] [address] Calcium 9.2 8.5 - 10.3 mg/dL [facility] Comment:Testing performed by : [address] [address] Bilirubin, total 0.2 0.1 - 1.2 mg/dL [facility] Comment:Testing performed by : [address] [address] Protein, pl 6.3(L) 6.5 - 8.5 g/dL [facility] Comment:Testing performed by : [address] [address] Albumin 4.0 3.5 - 5.0 g/dL [facility] Comment:Testing performed by : [address] [place] [address] Alk phos 58 40 - 130 Units/L [facility] Comment:Testing performed by : [address] [address] ALT 12 7 - 45 Units/L [facility] Comment:Testing performed by : [address] [address] AST 13 10 - 45 Units/L [facility] Comment:Testing performed by : [address] [address] Blood 08/15/2024 8:52 AM FORGESMITH 08/15/2024 8:55 AM FORGESMITH Stiven Collins DO LAB BLOOD ORDERABLES Final R esult [facility] [address] [facility] [place] [address] from Last 3 Months Insurance [facility] CLAIMS [facility] Address: [address] [address] [facility] [place] [employer] Advance Directives For more information, please contact: [phone] * Full Code (Latest Code Status on File) Date Activated Date Inactivated Comments 05/13/2024 2:46 PM 05/14/2024 5:53 PM Care Teams Natural Resources Engineer Relationship Specialty Start Date End Date Eddie Lamb MD [address] [place] [address] PCP - General Internal Medicine 03/22/24 George Leonard MD [facility] [address] [address] Consulting Physician Surgery 01/29/24 Marii Aaron MD [facility] [address] [phone] Radiation Oncologist Radiation Oncology 01/29/24 Stiven Collins DO [address] [place] [address] Medical Oncologist/Candle Molder Hematology and Oncology 02/04/24 Madison Stone MD [address] [place] [address] Nurse Practitioner 05/16/24
--- OUTSIDE RECORDS SUMMARY | 2024-11-13 10:46 | XMS_ITS | Clinical Summary ---
Author Organization [facility] Address [address] [place] [address] Care Team Providers Care Buffing Machine Operator Name Role Phone Eddie Lamb MD Primary Care Provider [phone] Allergies No known active allergies Medications sertraline (ZOLOFT) 25 MG tabletIndications: BLANCA (generalized anxiety disorder),Reactive depression Take 1 tablet (25 mg total) by mouth daily. 90 tablet 1 5 Active ALPRAZolam (XANAX) 0.5 MG tabletIndications: BLANCA (generalized anxiety disorder) Take 1 tablet (0.5 mg total) by mouth nightly as needed for Sleep. 20 tablet 5 Active rosuvastatin (CRESTOR) 5 MG tabletIndications: Mixed hyperlipidemia Take 1 tablet (5 mg total) by mouth nightly at bedtime. 90 tablet 3 5 Active sertraline (ZOLOFT) 25 MG tabletIndications: BLANCA (generalized anxiety disorder),Reactive depression Take 1 tablet (25 mg total) by mouth daily. 90 tablet 1 4 025 Discontinu ed(Reorder ) methylPREDNISolone , JESSICA, (MEDROL DOSEPAK) 4 MG tabletIndications: Acute irritant contact dermatitis 6 TABLETS ON DAY ONE, 5 TABLETS DAY TWO, 4 TABLETS DAY THREE, 3 TABLETS DAY FOUR, 2 TABLETS DAY FIVE, AND 1 TABLET DAY SIX 1 each 4 025 Discontinu ed(Other- Please enter comment in Notes field) ALPRAZolam (XANAX) 0.5 MG tabletIndications: BLANCA (generalized anxiety disorder) Take 1 tablet (0.5 mg total) by mouth nightly as needed for Sleep. 20 tablet 025 Discontinu ed(Reorder ) Active Problems Problem Noted Date Diagnosed Date Mass of left breast, unspecified quadrant 2023 Breast pain, right 12/29/2023 Mixed hyperlipidemia 10/23/2023 Encounters Date Type Department Care Team Description 11/03/2024 [address] [address] [place] [address] Eddie Lamb MD Lab Results 11/02/2024 9:00 AM PIERCING SPECIALIST Office [facility] [address] [address] [facility] [address] [place] [address] Eddie Lamb MD Physical 11/02/2024 Tele[address] [address] [place] [address] Eddie Lamb MD Medication 11/02/2024 Travel 09/05/2024 Scan [facility] HE[facility] INFO SRVCS Scanned, [facility] from Last 3 Months Immunizations Name Administration Dates Next Due Tdap (Adacel) 04/19/2024 Family History Medical History Relation Comments Cancer Maternal Aunt 1 Stomach cancer Maternal Aunt 2 Liver cancer Maternal Uncle Arthritis Mother Hypertension Mother Relation Status Comments Maternal Aunt 1 Maternal Aunt 2 Alive Maternal Uncle Alive Mother Social History Tobacco Use Types Packs/Day Years Used Date Smoking Tobacco: Never Passive Smoke Exposure: Never Smokeless Tobacco: Never Tobacco Cessation:Counseling Given: Yes Comments:Counseled by Dr. Lamb. Alcohol Use Standard Drinks/Week Comments Never 0 (1 standard drink = 0.6 oz pur e alcohol) PHQ-2 Answer Date Recorded Patient Health Questionnaire-2 Score 1 11/02/2024 Comments No Sex and Gender Information Value Date Recorded Sex Assigned at Female 11/02/2024 8:58 AM PIERCING SPECIALIST Legal Sex Female 1:23 PM PIERCING SPECIALIST Gender Identity Female 11/02/2024 8:58 AM PIERCING SPECIALIST Sexual Orientation Straight 11/02/2024 8: 58 AM PIERCING SPECIALIST Last Filed Vital Signs Vital Sign Reading Time Taken Comments Blood Pressure 107/72 11/02/2024 8:59 AM PIERCING SPECIALIST Pulse 61 11/02/2024 8:59 AM PIERCING SPECIALIST Temperature 35.1 C (95.1 F) 11/02/2024 8:59 AM PIERCING SPECIALIST Respiratory Rate 16 11/02/2024 8:59 AM PIERCING SPECIALIST Oxygen Saturation 99% 11/02/2024 8:59 AM PIERCING SPECIALIST Inhaled Oxygen Concentration - - Weight 51.7 kg (114 lb) 11/02/2024 8:59 AM PIERCING SPECIALIST Height 161.3 cm (5' 3.5 ) 11/02/2024 8:59 AM PIERCING SPECIALIST Body Mass Index 19.88 11/02/2024 8:59 AM PIERCING SPECIALIST Plan of Treatment Upcoming Encounters Date Type Department Care Team (Late st Contact Info) Description 12/28/2024 12:30 PM CDT Appointment [facility] Mammography [address] [place], [place] [id number] Pam Leonard MD [address] [facility] [address] [place] [address] Health Maintenance Due Date Last Done Comments Cervical Cancer Screening Pa p Smear (Age 30 to 64) Every 3 Years 1960 Cervical Cancer Screening Pa p with HPV Testing (Age 30 to 64) Every 5 Years 1990 Cervical Cancer Screening with HPV 1990 Zoster Vaccines (1 of 2) 2010 COVID-19 Vaccine ( - 2023-2 5 season) 2024 02/09/2021, 01/19/2021 Influenza Adult (#1) 2025 Postpon ed from 05/31/2024 (Patient Refused) Annual Physical 11/02/2025 11/02/2024, 10/23/2023 Mammogram Screening 01/19/2026 01/20/2024, 01/04/2024, 12/29/2023 Colorectal Cancer Screening FIT-DNA (3 Years) 10/29/2026 10/30/2023, 10/30/2023 DTaP, Tdap and Td Vaccines ( 2 - Td or Tdap) 04/19/2034 04/19/2024 RSV Immunization or 60+ Years (1 - 1-dose 75+ series) 12/26/2035 Hepatitis C Completed 04/19/2024 PHQ-2 (Physician Marion) Completed 11/02/2024 Meningococcal B Vaccine Aged Out No l onger eligible based on patient's age to complete this topic Meningococcal Vaccine Aged Out No hipolito italia eligible based on patient's age to complete this topic Pneumococcal Vaccine: Pediatrics (0 to 5 Years) and At-Risk Patients (6 to 64 Years) Aged Out No longer eligible b ased on patient's age to complete this topic RSV Immunizations Under 20 Months Aged Out No longer eligible b ased on patient's age to complete this topic Procedures Procedure Name Priority Date/Time Associated Diagnosis Comments HEMOGLOBIN, GLYCOSYLATED Routine 11/02/2024 9:22 AM PIERCING SPECIALIST Annual physical exam General medical exam Drug therapy TSH W/REFLEX Routine 11/02/2024 9:22 AM PIERCING SPECIALIST Annual physical exam General medical exam Drug therapy LIPID PANEL Routine 11/02/2024 9:22 AM PIERCING SPECIALIST Annual physical exam General medical exam Drug therapy COMPREHENSIVE METABOLIC PANEL Routine 11/02/2024 9:22 AM PIERCING SPECIALIST Annual physical exam General medical exam Drug therapy CBC W/DIFF AUTOMATED Routine 11/02/2024 9:22 AM PIERCING SPECIALIST Annual physical exam General medical exam Drug therapy COLLECTION VENOUS BLOOD VENIPUNCTURE Routine 11/02/2024 9:12 AM PIERCING SPECIALIST Annual physical exam General medical exam Drug therapy URINALYSIS AUTO DIP Routine 11/02/2024 Annual physical exam General medical exam Drug therapy HEPATITIS C ANTIBODY Routine 04/19/2024 9:37 AM CDT Need for hepatitis C screening test MG DIAG IMPLANT LT DIGI Routine 01/20/2024 1:28 PM CDT Breast mass, left COLOGUARD (EXACT SCIENCE) Routine 10/30/2023 10:30 AM PIERCING SPECIALIST Screen for colon cancer from Last 3 Months or Most Recently Relevant to Health Maintenance Results * TSH W/REFLEX (11/02/2024 9:22 AM PIERCING SPECIALIST) TSH 1.646 0.358 - 3.740 uIU/ML 11/02/2024 3:15 PM PIERCING SPECIALIST [facility] 11/02/2024 9:22 AM PIERCING SPECIALIST Eddie Lamb MD LABORATORY Final Result Performing Organization Address City/[facility]/ZIP Co de Phone Number [facility] [address] [place] [address], [place] [phone] * HEMOGLOBIN, GLYCOSYLATED (11/02/2024 9:22 AM PIERCING SPECIALIST) HGB A1C 5.1 4.5 - 6.2 % 11/02/2024 3:38 PM PIERCING SPECIALIST [facility] ESTIMATED AVG GLUCOSE 100 74 - 106 MG/DL 11/02/2024 3:38 PM PIERCING SPECIALIST [facility] 11/02/2024 9:22 AM PIERCING SPECIALIST Eddie Lamb MD LABORATORY Final Result Performing Organization Address City/[facility]/RUST Co de Phone Number [facility] [address] [place] [address], [place] [phone] * (ABNORMAL) COMPREHENSIVE METABOLIC PANEL (11/02/2024 9:22 AM PIERCING SPECIALIST) SODIUM S/P/B 143 136 - 145 MMOL/L 11/02/2024 3:15 PM PIERCING SPECIALIST [facility] POTASSIUM S/P/B 4.0 3.5 - 5.1 MMOL/L 11/02/2024 3:15 PM PIERCING SPECIALIST [facility] CHLORIDE S/P/B 107 98 - 107 MMOL/L 11/02/2024 3:15 PM PIERCING SPECIALIST [facility] CO2 30.0 21 - 32 MMOL/L 11/02/2024 3:15 PM [facility] GLUCOSE 81 70 - 99 MG/DL 11/02/2024 3:15 PM [facility] BUN 13 7 - 18 MG/DL 11/02/2024 3:15 PM [facility] CREATININE S/P/B 0.56 0.55 - 1.02 MG/DL 11/02/2024 3:15 PM [facility] CALCIUM S/P/B 9.1 8.4 - 10.5 MG/DL 11/02/2024 3:15 PM [facility] BILIRUBIN TOTAL S/P/B 0.3 0.2 - 1.0 MG/DL 11/02/2024 3:15 PM [facility] ALKALINE PHOSPHATASE S/P/B 48(L) 50 - 130 U/L 11/02/2024 3:15 PM [facility] AST 19 15 - 37 U/L 11/02/2024 3:15 PM [facility] ALT 33 14 - 59 U/L 11/02/2024 3:15 PM [facility] TOTAL PROTEIN S/P/B 6.7 6.4 - 8.2 G/DL 11/02/2024 3:15 PM [facility] ALBUMIN S/P/B 3.7 3.4 - 5.0 G/DL 11/02/2024 3:15 PM [facility] ANION GAP 6.0 5 - 15 MMOL/L 11/02/2024 3:15 PM [facility] Comment:REFERENCE RANGE NOT ESTABLISHED OSMOLALITY (CALC) 295 MOSM/KG 025 3:15 PM [facility] Comment:REFERENCE RANGE NOT ESTABLISHED GFR ESTIMATE >90 >90 ML/MIN/1. 73 M2 11/02/2024 3:15 PM [facility] GFR NOTES GFR REFERENCE S: 11/02/2024 3:15 PM [facility] Comment: THE ESTIMATED GFR IS CALCULATED USING THE 2020 CKD-EPI EQUATION. THE FOLLOWING CATEGORIES FOR GRADING RENAL FUNCTION ARE RECOMMENDED BY THE INTERNATIONAL SOCIETY OF NEPHROLOGY (KDIGO 2012 CLINICAL PRACTICE GUIDELINE). G1,NORMAL OR HIGH: >89 ml/min/1.73 m2 G2,MILDLY DECREASED: 60-89 ml/min/1.73 m2 G3A,MILDLY TO MODERATELY DECREASED: 45-59 ml/min/1.73 m2 G3B,MODERATELY TO SEVERELY DECREASED: 30-44 ml/min/1.73 m2 G4,SEVERELY DECREASED: 15-29 ml/min/1.73 m2 G5,KIDNEY FAILURE: <15 ml/min/1.73 m2 11/02/2024 9:22 AM PIERCING SPECIALIST Eddie Lamb MD LABORATORY Final Result [facility] [address] [place] [address], * (ABNORMAL) LIPID PANEL (11/02/2024 9:22 AM PIERCING SPECIALIST) CHOLESTEROL 297(H) <200 MG/DL 11/02/2024 3:15 PM [facility] TRIGLYCERIDES 90 <150 MG/DL 11/02/2024 3:15 PM [facility] HDL 81 >40 MG/DL 11/02/2024 3:15 PM [facility] LDL-C 198(H) <100 MG/DL 11/02/2024 3:15 PM [facility] VLDL CALCULATION 18 5 - 28 MG/DL 11/02/2024 3:15 PM [facility] CHOL/HDL RATIO 3.7 0.0 - 4.0 11/02/2024 3:15 PM [facility] LDL/HDL 2.4(H) 0.41 - 2.13 11/02/2024 3:15 PM [facility] HDL CHOLESTEROL 216(H) <140 MG/DL 11/02/2024 3:15 PM [facility] 11/02/2024 9:22 AM PIERCING SPECIALIST Eddie Lamb MD LABORATORY Final Result [facility] [address] [place] [address], * (ABNORMAL) CBC W/DIFF AUTOMATED (11/02/2024 9:22 AM PIERCING SPECIALIST) WBC 4.30 4.00 - 10.80 x10'3/uL 11/02/2024 2:52 PM [facility] RBC 4.78 4.10 - 5.40 x10'6/uL 11/02/2024 2:52 PM [facility] HGB 13.3 12.0 - 16.0 G/DL 11/02/2024 2:52 PM [facility] HCT 41.9 36.0 - 47.0 % 11/02/2024 2:52 PM [facility] MCV 87.7 78.0 - 100.0 FL 11/02/2024 2:52 PM [facility] MCH 27.8 27.0 - 31.0 PG 11/02/2024 2:52 PM [facility] MCHC 31.7(L) 33.0 - 36.0 G/DL 11/02/2024 2:52 PM [facility] RDW 13.6 11.5 - 14.5 % 11/02/2024 2:52 PM [facility] PLT 244 150 - 350 x10'3/uL 11/02/2024 2:52 PM [facility] MPV 9.9 7.4 - 10.4 FL 11/02/2024 2:52 PM [facility] DIFFERENTIAL TYPE AUTOMATED DIFFERENTIAL 11/02/2024 2:53 PM [facility] NEUTROPHILS % 48.1 % 11/02/2024 2:53 PM [facility] LYMPHOCYTES % 40.5 % 11/02/2024 2:53 PM [facility] MONOCYTES % 7.4 % 11/02/2024 2:53 PM [facility] EOSINOPHILS % 3.3 % 11/02/2024 2:53 PM [facility] BASOPHILS % 0.7 % 11/02/2024 2:53 PM [facility] IMMATURE GRANS % 0.0 % 11/02/2024 2:53 PM [facility] ABS. NEUTROPHILS 2.07 1.60 - 8.30 x10'3/uL 11/02/2024 2:53 PM [facility] ABS. LYMPHOCYTES 1.74 0.80 - 4.70 x10'3/uL 11/02/2024 2:53 PM [facility] ABS. MONOCYTES 0.32 0.00 - 1.50 x10'3/uL 11/02/2024 2:53 PM [facility] ABS. EOSINOPHILS 0.14 0.00 - 0.40 x10'3/uL 11/02/2024 2:53 PM [facility] ABS. BASOPHILS 0.03 0.00 - 0.20 x10'3/uL 11/02/2024 2:53 PM [facility] ABS. IMMATURE GRANULOCYTES 0.00 0.00 - 0.03 x10'3/uL 11/02/2024 2:53 PM [facility] 11/02/2024 9:22 AM PIERCING SPECIALIST Eddie Lamb MD LABORATORY Final Result [facility] [address] [facility] [place] [address], * (ABNORMAL) URINALYSIS AUTO DIP (11/02/2024) COLOR (U) YELLOW YELLOW [address], [place] TRANSPARENCY CLEAR CLEAR [address], [place] GLUCOSE (U) NEGATIVE NEGATIVE MG/DL MG[address], [place] BILIRUBIN (U) NEGATIVE NEGATIVE MG-[address], [place] KETONES MG/DL (U) NEGATIVE NEGATIVE MG/DL MG-[address], [place] SPECIFIC GRAVITY (U) 1.020 1.001 - 1.035 [address], [place] BLOOD (U) NEGATIVE NEGATIVE MG[address], [place] U PH 7.0 5.0 - 9.0 MG-[address], [place] PROTEIN (U) NEGATIVE NEGATIVE mg/dL MG-[address], [place] UROBILINOGEN 0.2 0.2 - 1.0 EU/dL = mg/dL MG-[address], [place] NITRITES NEGATIVE NEGATIVE MG/DL MG-[address], [place] LEUKOCYTES (U) NEGATIVE NEGATIVE MG-[address], [place] URINE SPECIMEN OBTAINED BY CLEAN CATCH PROCEDURE / Unknown 11/02/2024 Eddie Lamb MD URINE ORDERABLES Final Result [address], [place] [address] [place] [address], * HEPATITIS C ANTIBODY ([facility] ONLY) (04/19/2024 9:37 AM CDT) HEPATITIS C AB NON-REACTI VE NON-REACT ELISE 04/19/2024 6:42 PM CDT [facility] Comment: ANTIBODIES TO HCV NOT DETECTED. DOES NOT EXCLUDE THE POSSIBILITY OF EXPOSURE TO HCV. 04/19/2024 9:37 AM CDT Eddie Lamb MD LABORATORY Final Result [facility] [address] [place] [address], [id number] * MG DIAG IMPLANT LT DIGI (01/20/2024 1:28 PM CDT) Anatomical Region Laterality Modality Breast Left Mammography 01/20/2024 1:57 PM CDT Impressions 01/20/2024 2:01 PM CDT IMPRESSION: Post biopsy as described. Correlation with the intraprocedural findings required. Recommendation: 1: Clinical correlation Left Return for Routine Follow-Up: No Assessment: Post procedure mammogram for marker placement. Ordered By: PAM LEONARD Interpreted By: James Quick MD, 01/20/2024 1:57 PM Narrative 01/20/2024 2:01 PM CDT Examination: Digital left diagnostic mammogram. Clinical history: Suspicious lower inner quadrant mass with associated calcifications. Post biopsy. Comparison: 01/04/2024, 12/29/2023. Technique:CC and true lateral left digital mammograms including implant displaced views . Tissue density: The breast tissue is heterogeneously dense. Findings: Images document mammographic/sonographic concordance with adequate positioning of the tissue marker. There are numerous residual microcalcifications. No postbiopsy hematoma is evident. Correlation with the intraprocedural findings is required. Pam Leonard MD MAMMO Final Result * COLOGUARD (EXACT SCIENCE) (10/30/2023 10:30 AM PIERCING SPECIALIST) COLOGUARD RESULT Negative Negative [facility] (CLIA #:[id number]) Comment: NEGATIVE TEST RESULT. A negative Cologuard result indicates a low likelihood that a colorectal cancer (CRC) or advanced adenoma (adenomatous polyps with more advanced pre-malignant features) is present. The chance that a person with a negative Cologuard test has a colorectal cancer is less than 1 in 1500 (negative predictive value >99.9%) or has an advanced adenoma is less than 5.3% (negative predictive value 94.7%). These data are based on a prospective cross-sectional study of 10,000 individuals at average risk for colorectal cancer who were screened with both Cologuard and colonoscopy. (Alexandra Michael al, N Engl J Med 2014;370(14):3484-4757) The normal value (reference range) for this assay is negative. COLOGUARD RE-SCREENING RECOMMENDATION: Periodic colorectal cancer screening is an important part of preventive healthcare for asymptomatic individuals at average risk for colorectal cancer. Following a negative Cologuard result, the [place] Cancer Society and U.S. Multi-Society Task Force screening guidelines recommend a Cologuard re-screening interval of 3 years. References: [place] Society Guideline for Colorectal Cancer Screening: https://www.cancer.org/cancer/cuavh-suanne-hxfwck/yisxdcuha-dmelncqxf-pzmyfwz/ac s-rec ommendations.html.; You DK, Edyta MALDONADO, Tala LewisK, Colorectal Cancer Screening: Recommendations for Physicians and Patients from the U.S. Multi-Society Task Force on Colorectal Cancer Screening , Am J Gastroenterology 2017; 112:5405-7399. TEST DESCRIPTION: Composite algorithmic analysis of stool DNA-biomarkers with hemoglobin immunoassay. Quantitative values of individual biomarkers are not reportable and are not associated with individual biomarker result reference ranges. Cologuard is intended for colorectal cancer screening of adults of either sex, 45 years or older, who are at average-risk for colorectal cancer (CRC). Cologuard has been approved for use by the U.S. FDA. The performance of Cologuard was established in a cross sectional study of average-risk adults aged 50-84. Cologuard performance in patients ages 45 to 49 years was estimated by sub-group analysis of near-age groups. Colonoscopies performed for a positive result may find as the most clinically significant lesion: colorectal cancer [4.0%], advanced adenoma (including sessile serrated polyps greater than or equal to 1cm diameter) [20%] or non- advanced adenoma [31%]; or no colorectal neoplasia [45%]. These estimates are derived from a prospective cross-sectional screening study of 10,000 individuals at average risk for colorectal cancer who were screened with both Cologuard and colonoscopy. (Alexandra Michael al, N Engl J Med 2014;370(14):0470-0936.) Cologuard may produce a false negative or false positive result (no colorectal cancer or precancerous polyp present at colonoscopy follow up). A negative Cologuard test result does not guarantee the absence of CRC or advanced adenoma (pre-cancer). The current Cologuard screening interval is every 3 years. ([employer] Cancer Society and U.S. Multi-Society Task Force). Cologuard performance data in a 10,000 patient pivotal study using colonoscopy as the reference method can be accessed at the following location: www.[employer].com/results. Additional description of the Cologuard test process, warnings and precautions can be found at www.cologuard.com. STOOL STOOL SPECIMEN / Unknown 10/30/2023 10:30 AM PIERCING SPECIALIST 10/31/2023 6:14 AM PIERCING SPECIALIST Eddie Lamb MD BODY FLUIDS AND STOOLS ORDERABLE S Final Result [facility] ([facility] [address] [facility]) [address] [place] [address], [employer] (CLIA #:[id number]) [address] [place] [address] from Last 3 Months or Most Recently Relevant [place] [id number] Care Teams Buffing Machine Operator Relationship Specialty Start Date End Date Eddie Lamb MD [address] [address] PCP - General INTERNAL MEDICINE 10/19/23
--- OUTSIDE RECORDS SUMMARY | 2024-11-13 10:46 | XMS_ITS | Encounter Summary ---
Author Organization [facility] Address [facility] [place] [address] Care Team Providers Care Agriscience Technology Instructor Name Role Phone Eddie Lamb MD Primary Care Provider [phone] Encounter Details Date Type Department Care Team (Latest Contact Info) Description 11/02/2023 Solarflare Communicationshart Message Enc [facility] Medical Group Multispecialty Care - [place] [address] [address] [address] [place] [address] [place] [address] [place] [address] [address] [place], [place] [id number] Continued Jaw Pain Social History Tobacco Use Types Packs/Day Years Used Date Smoking Tobacco: Never Passive Smoke Exposure: Never Smokeless Tobacco: Never Comments:Counseled by Dr. Lien orozco. Alcohol Use Standard Drinks/Week Comments Never 0 (1 standard drink = 0.6 oz pur e alcohol) PHQ-2 Answer Date Recorded Patient Health Questionnaire-2 Score 1 10/23/2023 Comments Unknown Sex and Gender Information Value Date Recorded Sex Assigned at Female 11/02/2024 8:58 AM SEWER CLEANER Legal Sex Female 1:23 PM SEWER CLEANER Gender Identity Female 11/02/2024 8:58 AM SEWER CLEANER Sexual Orientation Straight 11/02/2024 8: 58 AM SEWER CLEANER documented as of this encounter Progress Notes * Silas Eli - 11/03/2023 4:09 PM CST Pts significant other called for pt today [place], and is waiting on a response from Dr. Lamb, I kindly let him know that the doctor has a response time, and she will answer their needs. R CLEANER documented in this encounter Plan of Treatment Upcoming Encounters Date Type Department Care Team (Late st Contact Info) Description 12/28/2024 12:30 PM CDT Appointment [place] [facility] [address] [place] [address] George Leonard MD [facility] [id number] documented as of this encounter Visit Diagnoses Not on filedocumented in this encounter Additional Health Concerns Assessment Noted Time PHQ-9 Depression Total Score: 3 10/23/19 24 10:50 AM SEWER CLEANER documented as of this encounter Care Teams Agriscience Technology Instructor Relationship Specialty Start Date End Date Eddie Lamb MD [address] [facility] [address] [place] [address] PCP - General INTERNAL MEDICINE 10/19/23 documented as of this encounter
[2024-11-13 10:51] VITALS: BP 154/80; PULSE 59; RESP 18; TEMP 36.5; O2SAT 100
--- OUTSIDE RECORDS SUMMARY | 2024-11-13 11:34 | XMS_ITS | Encounter Summary ---
Author Organization [facility] Address [facility] [place] [address] Care Team Providers Care Gymnastics Instructor Name Role Phone Eddie Lamb MD Primary Care Provider Encounter Details Date Type Department Care Team (Latest Contact Info) Description 06/30/2024 MyChart Message Enc [facility] Medical Group Multispecialty Care - [place] [address] [address] [address] [place] [address] [place] [address] [place] [address] [address] [place], [place] [id number] 07/07 Mammogram/Ultrasoun d Appt. Social History Tobacco [...] Sex Assigned at Female 11/02/2024 8:58 AM MICROBIOLOGY LAB MANAGER Legal Sex Female 1:23 PM MICROBIOLOGY LAB MANAGER Gender Identity Female 11/02/2024 8:58 AM MICROBIOLOGY LAB MANAGER Sexual Orientation Straight 11/02/2024 8: 58 AM MICROBIOLOGY LAB MANAGER documented as of this encounter Plan of Treatment Upcoming Encounters Date Type Department Care Team (Late st Contact Info) Description 12/28/2024 12:30 PM CDT Appointment [facility] [address] [address] George Leonard MD [address] [facility] [address] [place] [address] documented as of this encounter Visit Diagnoses Not on filedocumented in this encounter Additional Health Concerns Assessment Noted Time PHQ-9 Depression Total Score: 11 024 9:25 AM CDT documented as of this encounter Care Teams Gymnastics Instructor Relationship Specialty Start Date End Date Eddie Lamb MD [address] [facility] [address] [place] [address] PCP - General INTERNAL MEDICINE 10/19/23 documented as of this encounter
--- OUTSIDE RECORDS SUMMARY | 2024-11-13 11:34 | XMS_ITS | Referral Summary ---
Author Organization [facility] [address] [place] Address [address] [place] [phone] Care Team Providers Care Letterer Name Role Phone George Leonard MD Unavailable [phone] Marii Aaron MD Unavailable [phone] Stiven Collins DO Unavailable [phone] Eddie Lamb MD Primary Care Provider [phone] Madison Stone MD Unavailable [phone] Encounters Date Type Department Care Team Description 09/05/2024 Orders Only [facility] Oncology [facility] [facility] [address] [place] [phone] Kathy Jacobson RN Encounter for care related to vascular access port (Primary Dx); Malignant neoplasm of lower-inner quadrant of left breast in female, estrogen receptor negative (HCC) 08/29/2024 11:24 AM RESCUE INSTRUCTOR - 08/29/2024 11:59 PM RESCUE INSTRUCTOR Hospital Encounter [facility] Medical Office Building [address] [facility] [place], [place] [phone] Malignant neoplasm of lower-inner quadrant of left breast in female, estrogen receptor negative (HCC) Discharge Disposition: Discharge to home or self care 08/15/2024 8:30 AM RESCUE INSTRUCTOR Clinical Support [facility] at [address] [address] Malignant neoplasm of lower-inner quadrant of left breast in female, estrogen receptor negative (HCC); Prevention of chemotherapy-induce d neutropenia 08/15/2024 9:00 AM [facility] at [address] [phone] Prevention of chemotherapy-induce d neutropenia (Primary Dx); [...] from 02/04/2024:Stage IB(cT1c, cN0, cM0, G3, ER-, [place]-, HER2-) - Signed by Marii Aaron MD [...] on file Legal Sex Female 4:27 PM RESCUE INSTRUCTOR Gender Identity Female 04/04/2024 8:02 PM CDT Sexual Orientation Straight 04/04/2024 8: 02 PM CDT 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 file Not on file Not on file Last Filed Vital Signs Vital Sign Reading Time Taken Comments Blood Pressure 122/75 08/15/2024 9:03 AM RESCUE INSTRUCTOR Pulse 97 08/15/2024 9:03 AM RESCUE INSTRUCTOR Temperature 36.6 C (97.9 F) 08/15/2024 9:03 AM RESCUE INSTRUCTOR Respiratory Rate 16 08/15/2024 9:03 AM RESCUE INSTRUCTOR Oxygen Saturation 98% 08/15/2024 9:03 AM RESCUE INSTRUCTOR Inhaled Oxygen Concentration - - Weight 51 kg (112 lb 7 oz) 11/03/2024 9:38 AM CS T Height 162.6 cm (5' 4 ) 11/03/2024 9:38 AM RESCUE INSTRUCTOR Body Mass Index 19.3 11/03/2024 9:38 AM RESCUE INSTRUCTOR Plan of Treatment Upcoming Encounters Date Type Department Care Team (Latest Contact Info) Description 11/14/2024 11:10 AM CDT Hospital Encounter [facility] OR [address] [place] [phone] George Leonard MD [address] [place] [phone] 11/14/2024 11:10 AM CDT Anesthesia Event [facility] OR [address] [place] [address] Paul Monte MD [address] [place] [address] 11/14/2024 11:10 AM CDT - 11/14/2024 12:10 PM CDT Surgery [facility] OR [address] [place] [address] George Leonard MD [address] [place] [address] REMOVAL PORT A CATH Scheduled Procedures Name Priority Associated Diagnoses Date/Ti me REMOVAL PORT A CATH NON USE 11/14/2024 11:10 AM CDT Medical Devices Implanted Type Area Repairer Finished Metal Device Identifier Shelf Expiration Date Model / Serial / Lot Breast Implant Bilateral: Breast Dom Michael Powerport Mri Airguard 8fr 1 Lumen Attachable Catheter Latex Free [id number] - [id number] Implanted:Qty: 1 on 05/13/2024 by Miguel Rodriguez MD at [facility] Right: Chest Dom Harlan [id number] 11/28/2025 [id number] / / [id number] Adam [employer] Billy Sealant Fibrin Patch Slater Set Frozen Prefilled Syringe Artiss 4ml [id number] - [id number] Implanted:Qty: 1 on 05/13/2024 by Miguel Rodriguez MD at [facility] Left: Breast [employer] Billy 08/30/2025 [id number] / / [id number] [employer] Cortiva 9.2x19.2cm [id number] - [id number] - [id number] Implanted:Qty: 1 on 05/13/2024 by Miguel Rodriguez MD at [facility] Left: Breast [employer] [id number] 03/30/2029 [id number] / [id number] / [id number] [employer] Cortiva 9.2x19.2cm Mbs324 - [id number] - [id number] Implanted:Qty: 1 on 05/13/2024 by Miguel Rodriguez MD at [facility] Left: Breast [employer] [id number] 03/30/2029 [id number] / [id number] / [id number] [employer] Implant Breast Round Moderate Projection Plus Smooth Opus Luxe 305cc Silicone Gel [id number] - [id number] - [id number] Implanted:Qty: 1 on 05/13/2024 by Miguel Rodriguez MD at [facility] Left: Breast [employer] [id number] 11/16/2025 [id number] / [id number] / Procedures Procedure Name Priority Date/Time Associated Diagnosis Comments CT CHEST ABDOMEN PELVIS W CONTRAST Schedule Routine, Read Routine (OP Routine) 08/29/2024 11:40 AM RESCUE INSTRUCTOR Malignant neoplasm of lower-inner quadrant of left breast in female, estrogen receptor negative (HCC) EGFR STAT 08/15/2024 8:52 AM RESCUE INSTRUCTOR Malignant neoplasm of lower-inner quadrant of left breast in female, estrogen receptor negative (HCC) Prevention of chemotherapy-induc ed neutropenia DIFFERENTIAL AUTO STAT 08/15/2024 8:5 2 AM RESCUE INSTRUCTOR Malignant neoplasm of lower-inner quadrant of left breast in female, estrogen receptor negative (HCC) Prevention of chemotherapy-induc ed neutropenia CBC WITH AUTO DIFFERENTIAL STAT 08/15/2024 8:52 AM RESCUE INSTRUCTOR Malignant neoplasm of lower-inner quadrant of left breast in female, estrogen receptor negative (HCC) Prevention of chemotherapy-induc ed neutropenia COMPREHENSIVE METABOLIC PANEL STAT 08/15/2024 8:52 AM RESCUE INSTRUCTOR Malignant neoplasm of lower-inner quadrant of left breast in female, estrogen receptor negative (HCC) Prevention of chemotherapy-induc ed neutropenia from Last 3 Months Results * CT Chest Abdomen Pelvis W Contrast (08/29/2024 11:40 AM RESCUE INSTRUCTOR) Anatomical Region Laterality Modality Body N/A Computed Tomogra phy 09/02/2024 1:41 PM RESCUE INSTRUCTOR Narrative 09/02/2024 1:48 PM RESCUE INSTRUCTOR EXAM DESCRIPTION: CT CHEST ABDOMEN PELVIS W [...] J Reno M.D. KN: WIN Report ID: [id number] [place] Location: [id number] Procedure Note Jose J Reno MD - [...] J Reno M.D. KN: WIN Report ID: [id number] [place] Location: [place] [address] us Stiven Collins DO IMG CT PROCEDURES Final Resu lt * eGFR (08/15/2024 8:52 AM RESCUE INSTRUCTOR) eGFR >90 >=60 mL/min/1. 73 m2 Comment: [...] was last reviewed 2021. Testing performed by: [address] [address] Blood 08/15/2024 8:52 AM RESCUE INSTRUCTOR 08/15/2024 8:55 AM RESCUE INSTRUCTOR us Stiven Collins DO LAB BLOOD ORDERABLES Final R esult [facility] [address] Department [place] [address] * (ABNORMAL) Differential, auto (08/15/2024 8:52 AM RESCUE INSTRUCTOR) Pathologist [facility] Neutrophil abs 8.3(H) 1.5 - 6.5 K/cumm Comment:Testing performed by : [address] [address] Imm gran abs 0.1 0.0 - 0.1 K/cumm [facility] Comment:Testing performed by : [address] [address] Lymphocyte abs 1.2 0.8 - 3.3 K/cumm [facility] Comment:Testing performed by : [address] [address] Monocyte abs 0.5 0.2 - 0.8 K/cumm [facility] Comment:Testing performed by : [address] [address] Eosinophil abs 0.0 0.0 - 0.5 K/cumm [facility] Comment:Testing performed by : [address], [place]., [address] Basophil abs 0.0 0.0 - 0.1 K/cumm [facility] Comment:Testing performed by : [address] [address] Neutrophil pct 82.7 % [facility] Comment: Interpretive Data Percent cell count reference ranges are not reported, since discordance with absolute values may lead to misinterpretation of CBC data. Current Interpretive Data was last revised on 2017. Testing performed by: [address] [address] Imm gran pct 0.6 % [facility] Comment: Interpretive Data Percent cell count reference ranges are not reported, since discordance with absolute values may lead to misinterpretation of CBC data. Current Interpretive Data was last revised on 2017. Testing performed by: [address] [address] Lymphocyte pct 11.9 % [facility] Comment: Interpretive Data Percent cell count reference ranges are not reported, since discordance with absolute values may lead to misinterpretation of CBC data. Current Interpretive Data was last revised on 2017. Testing performed by: [address] [address] Monocyte pct 4.7 % [facility] Comment: Interpretive Data Percent cell count reference ranges are not reported, since discordance with absolute values may lead to misinterpretation of CBC data. Current Interpretive Data was last revised on 2017. Testing performed by: [address] [address] Eosinophil pct 0.0 % [facility] Comment: Interpretive Data Percent cell count reference ranges are not reported, since discordance with absolute values may lead to misinterpretation of CBC data. Current Interpretive Data was last revised on 2017. Testing performed by: [address] [address] Basophil pct 0.1 % [facility] Comment: Interpretive Data Percent cell count reference ranges are not reported, since discordance with absolute values may lead to misinterpretation of CBC data. Current Interpretive Data was last revised on 2017. Testing performed by: [address] [address] Blood 08/15/2024 8:52 AM RESCUE INSTRUCTOR 08/15/2024 8:55 AM RESCUE INSTRUCTOR Stiven Collins DO LAB BLOOD ORDERABLES Final R esult [facility] Department [place] [address] * (ABNORMAL) CBC with auto differential (08/15/2024 8:52 AM RESCUE INSTRUCTOR) WBC 10.0(H) 3.8 - 9.9 K/cumm Comment:Testing performed by : [address] [address] Hgb 11.2(L) 11.9 - 15.5 g/dL [facility] Comment:Testing performed by : [address] [address] Hct 34.0(L) 35.6 - 45.5 % [facility] Comment:Testing performed by : [address] [address] Plt 270 150 - 400 K/cumm [facility] Comment:Testing performed by : [address] [address] MPV 8.6(L) 9.1 - 12.3 fL [facility] Comment:Testing performed by : [address] [address] RBC 3.95 3.90 - 5.20 M/cumm [facility] Comment:Testing performed by : [address] [address] MCV 86.1 81.3 - 96.4 fL [facility] Comment:Testing performed by : [address] [address] MCH 28.4 27.1 - 33.3 pg [facility] Comment:Testing performed by : [address] [address] MCHC 32.9 32.3 - 35.7 g/dL [facility] Comment:Testing performed by : [address] [address] RDW CV 16.8(H) 11.1 - 14.9 % [facility] Comment:Testing performed by : [address] [address] RDW SD 52.2(H) 35.7 - 48.1 fL [facility] Comment:Testing performed by : [address] [address] NRBC abs 0.00 0.00 - 0.01 K/cumm [facility] Comment:Testing performed by : [address] [address] Blood 08/15/2024 8:52 AM RESCUE INSTRUCTOR 08/15/2024 8:55 AM RESCUE INSTRUCTOR Stiven Collins DO LAB BLOOD ORDERABLES Final R esult [facility] [facility] Department of Laboratories [place], [place] [id number] * (ABNORMAL) Comprehensive metabolic panel (08/15/2024 8:52 AM RESCUE INSTRUCTOR) Sodium 141 135 - 145 mmol/L Comment:Testing performed by : [address] [address] Potassium, pl 3.7 3.3 - 4.9 mmol/L [facility] Comment:Testing performed by : [address] [address] Chloride 106 97 - 110 mmol/L [facility] Comment:Testing performed by : [address] [address] CO2 24 22 - 32 mmol/L [facility] Comment:Testing performed by : [address] [address] Anion gap 11 2 - 15 mmol/L [facility] Comment:Testing performed by : [address] [address] BUN 18 6 - 25 mg/dL [facility] Comment:Testing performed by : [address] [address] Creatinine 0.50(L) 0.60 - 1.10 mg/dL [facility] Comment:Testing performed by : [address] [address] Glucose 186 70 - 199 mg/dL [facility] [...] was last revised 2022. Testing performed by: [address] [address] Calcium 9.2 8.5 - 10.3 mg/dL [facility] Comment:Testing performed by : [address] [address] Bilirubin, total 0.2 0.1 - 1.2 mg/dL [facility] Comment:Testing performed by : [address] [address] Protein, pl 6.3(L) 6.5 - 8.5 g/dL [facility] Comment:Testing performed by : [address] [address] Albumin 4.0 3.5 - 5.0 g/dL [facility] Comment:Testing performed by : [address] [place]., [address] Alk phos 58 40 - 130 Units/L [facility] Comment:Testing performed by : [address] [address] ALT 12 7 - 45 Units/L [facility] Comment:Testing performed by : [address] [address] AST 13 10 - 45 Units/L [facility] Comment:Testing performed by : [address] [address] Blood 08/15/2024 8:52 AM RESCUE INSTRUCTOR 08/15/2024 8:55 AM RESCUE INSTRUCTOR Stiven Collins DO LAB BLOOD ORDERABLES Final R esult [facility] [address] [facility] Department [place] [address] from Last 3 Months Insurance [facility] CLAIMS [facility] CLAIMS [place] CLAIMS Advance Directives For more information, please contact: [phone] * Full Code (Latest Code Status on File) Date Activated Date Inactivated Comments 05/13/2024 2:46 PM 05/14/2024 5:53 PM Care Teams Letterer Relationship Specialty Start Date End Date Eddie Lamb MD [address] [place] [address] PCP - General Internal Medicine 03/22/24 George Leonard MD [facility] [address] Consulting Physician Surgery 01/29/24 Marii Aaron MD [facility] [phone] Radiation Oncologist Radiation Oncology 01/29/24 Stiven Collins DO [address] [place] [address] Medical Oncologist/Platform Operations Director Hematology and Oncology 02/04/24 Madison Stone MD [address] [place] [address] Nurse Practitioner 05/16/24
--- OUTSIDE RECORDS SUMMARY | 2024-11-13 11:34 | XMS_ITS ---
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
--- OUTSIDE RECORDS SUMMARY | 2024-11-13 11:34 | XMS_ITS | Clinical Summary ---
Author Organization [facility] Address [address] [place] [address] Care Team Providers Care Legal Technician Name Role Phone Eddie Lamb MD Primary Care Provider [phone] Allergies No known active allergies Medications sertraline [...] Type Department Care Team Description 11/03/2024 [address] [address] [address] [place] [address] Eddie Lamb MD Lab Results 11/02/2024 9:00 AM MATCHBOOK ASSEMBLER Office [place] [address] [facility] [address] [place] [address] Eddie Lamb MD Physical 11/02/2024 Telephone [address] [address] [address] [address] [place] [address] Eddie Lamb MD Medication 11/02/2024 Travel 09/05/2024 [...] Sex Assigned at Female 11/02/2024 8:58 AM MATCHBOOK ASSEMBLER Legal Sex Female 1:23 PM MATCHBOOK ASSEMBLER Gender Identity Female 11/02/2024 8:58 AM MATCHBOOK ASSEMBLER Sexual Orientation Straight 11/02/2024 8: 58 AM MATCHBOOK ASSEMBLER Last Filed Vital Signs Vital Sign Reading Time Taken Comments Blood Pressure 107/72 11/02/2024 8:59 AM MATCHBOOK ASSEMBLER Pulse 61 11/02/2024 8:59 AM MATCHBOOK ASSEMBLER Temperature 35.1 C (95.1 F) 11/02/2024 8:59 AM MATCHBOOK ASSEMBLER Respiratory Rate 16 11/02/2024 8:59 AM MATCHBOOK ASSEMBLER Oxygen Saturation 99% 11/02/2024 8:59 AM MATCHBOOK ASSEMBLER Inhaled Oxygen Concentration - - Weight 51.7 kg (114 lb) 11/02/2024 8:59 AM MATCHBOOK ASSEMBLER Height 161.3 cm (5' 3.5 ) 11/02/2024 8:59 AM MATCHBOOK ASSEMBLER Body Mass Index 19.88 11/02/2024 8:59 AM MATCHBOOK ASSEMBLER Plan of Treatment Upcoming Encounters Date Type Department Care Team (Late st Contact Info) Description 12/28/2024 12:30 PM CDT Appointment [facility] Mammography [address] [place], [place] [id number] Pam Leonard MD [address] [facility] [address] [place] [address] Health Maintenance Due Date Last [...] 12/26/2035 Hepatitis C Completed 04/19/2024 PHQ-2 (Physician Giltner) Completed 11/02/2024 Meningococcal B Vaccine Aged Out [...] Comments HEMOGLOBIN, GLYCOSYLATED Routine 11/02/2024 9:22 AM MATCHBOOK ASSEMBLER Annual physical exam General medical exam Drug therapy TSH W/REFLEX Routine 11/02/2024 9:22 AM MATCHBOOK ASSEMBLER Annual physical exam General medical exam Drug therapy LIPID PANEL Routine 11/02/2024 9:22 AM MATCHBOOK ASSEMBLER Annual physical exam General medical exam Drug therapy COMPREHENSIVE METABOLIC PANEL Routine 11/02/2024 9:22 AM MATCHBOOK ASSEMBLER Annual physical exam General medical exam Drug therapy CBC W/DIFF AUTOMATED Routine 11/02/2024 9:22 AM MATCHBOOK ASSEMBLER Annual physical exam General medical exam Drug therapy COLLECTION VENOUS BLOOD VENIPUNCTURE Routine 11/02/2024 9:12 AM MATCHBOOK ASSEMBLER Annual physical exam General medical exam Drug therapy URINALYSIS AUTO DIP Routine 11/02/2024 Annual physical exam General medical exam Drug therapy HEPATITIS C ANTIBODY Routine 04/19/2024 9:37 AM CDT Need for hepatitis C screening test MG DIAG IMPLANT LT DIGI Routine 01/20/2024 1:28 PM CDT Breast mass, left COLOGUARD (EXACT SCIENCE) Routine 10/30/2023 10:30 AM MATCHBOOK ASSEMBLER Screen for colon cancer from Last 3 Months or Most Recently Relevant to Health Maintenance Results * TSH W/REFLEX (11/02/2024 9:22 AM MATCHBOOK ASSEMBLER) TSH 1.646 0.358 - 3.740 uIU/ML 11/02/2024 3:15 PM MATCHBOOK ASSEMBLER [facility] 11/02/2024 9:22 AM MATCHBOOK ASSEMBLER Eddie Lamb MD LABORATORY Final Result Performing Organization Address City/[facility]/ZIP Co de Phone Number [facility] [address] [place] [address], [place] [phone] * HEMOGLOBIN, GLYCOSYLATED (11/02/2024 9:22 AM MATCHBOOK ASSEMBLER) HGB A1C 5.1 4.5 - 6.2 % 11/02/2024 3:38 PM MATCHBOOK ASSEMBLER [facility] ESTIMATED AVG GLUCOSE 100 74 - 106 MG/DL 11/02/2024 3:38 PM MATCHBOOK ASSEMBLER [facility] 11/02/2024 9:22 AM MATCHBOOK ASSEMBLER Eddie Lamb MD LABORATORY Final Result Performing Organization Address City/[facility] Co de Phone Number [facility] [address] [place] [address], [place] [phone] * (ABNORMAL) COMPREHENSIVE METABOLIC PANEL (11/02/2024 9:22 AM MATCHBOOK ASSEMBLER) SODIUM S/P/B 143 136 - 145 MMOL/L 11/02/2024 3:15 PM MATCHBOOK ASSEMBLER [facility] POTASSIUM S/P/B 4.0 3.5 - 5.1 MMOL/L 11/02/2024 3:15 PM MATCHBOOK ASSEMBLER [facility] CHLORIDE S/P/B 107 98 - 107 MMOL/L 11/02/2024 3:15 PM MATCHBOOK ASSEMBLER [facility] CO2 30.0 21 - 32 MMOL/L 11/02/2024 3:15 PM [facility] GLUCOSE 81 70 - 99 MG/DL 11/02/2024 3:15 PM [facility] BUN 13 7 - 18 MG/DL 11/02/2024 3:15 PM [facility] CREATININE S/P/B 0.56 0.55 - 1.02 MG/DL 11/02/2024 3:15 PM [facility] CALCIUM S/P/B 9.1 8.4 - 10.5 MG/DL 11/02/2024 3:15 PM [facility] BILIRUBIN TOTAL S/P/B 0.3 0.2 - 1.0 MG/DL 11/02/2024 3:15 PM [facility] ALKALINE PHOSPHATASE S/P/B 48(L) 50 - 130 U/L 11/02/2024 3:15 PM [facility] AST 19 15 - 37 U/L 11/02/2024 3:15 PM [facility] ALT 33 14 - 59 U/L 11/02/2024 3:15 PM [facility] TOTAL PROTEIN S/P/B 6.7 6.4 - 8.2 G/DL 11/02/2024 3:15 PM [facility] ALBUMIN S/P/B 3.7 3.4 - 5.0 G/DL 11/02/2024 3:15 PM [facility] ANION GAP 6.0 5 - 15 MMOL/L 11/02/2024 3:15 PM [facility] Comment:REFERENCE RANGE NOT ESTABLISHED OSMOLALITY (CALC) 295 MOSM/KG 025 3:15 PM [facility] Comment:REFERENCE RANGE NOT ESTABLISHED GFR ESTIMATE >90 >90 ML/MIN/1. 73 M2 11/02/2024 3:15 PM [facility] GFR NOTES GFR REFERENCE S: 11/02/2024 3:15 PM [facility] Comment: THE ESTIMATED GFR IS CALCULATED [...] FAILURE: <15 ml/min/1.73 m2 11/02/2024 9:22 AM MATCHBOOK ASSEMBLER Eddie Lamb MD LABORATORY Final Result [facility] [address] [place] [address], * (ABNORMAL) LIPID PANEL (11/02/2024 9:22 AM MATCHBOOK ASSEMBLER) CHOLESTEROL 297(H) <200 MG/DL 11/02/2024 3:15 PM [facility] TRIGLYCERIDES 90 <150 MG/DL 11/02/2024 3:15 PM [facility] HDL 81 >40 MG/DL 11/02/2024 3:15 PM [facility] LDL-C 198(H) <100 MG/DL 11/02/2024 3:15 PM [facility] VLDL CALCULATION 18 5 - 28 MG/DL 11/02/2024 3:15 PM [facility] CHOL/HDL RATIO 3.7 0.0 - 4.0 11/02/2024 3:15 PM [facility] LDL/HDL 2.4(H) 0.41 - 2.13 11/02/2024 3:15 PM [facility] HDL CHOLESTEROL 216(H) <140 MG/DL 11/02/2024 3:15 PM [facility] 11/02/2024 9:22 AM MATCHBOOK ASSEMBLER Eddie Lamb MD LABORATORY Final Result [facility] [address] [place] [address], * (ABNORMAL) CBC W/DIFF AUTOMATED (11/02/2024 9:22 AM MATCHBOOK ASSEMBLER) WBC 4.30 4.00 - 10.80 x10'3/uL 11/02/2024 2:52 PM [facility] RBC 4.78 4.10 - 5.40 x10'6/uL 11/02/2024 2:52 PM [facility] HGB 13.3 12.0 - 16.0 G/DL 11/02/2024 2:52 PM [facility] HCT 41.9 36.0 - 47.0 % 11/02/2024 2:52 PM [facility] MCV 87.7 78.0 - 100.0 FL 11/02/2024 2:52 PM [facility] MCH 27.8 27.0 - 31.0 PG 11/02/2024 2:52 PM [facility] MCHC 31.7(L) 33.0 - 36.0 G/DL 11/02/2024 2:52 PM [facility] RDW 13.6 11.5 - 14.5 % 11/02/2024 2:52 PM [facility] PLT 244 150 - 350 x10'3/uL 11/02/2024 2:52 PM [facility] MPV 9.9 7.4 - 10.4 FL 11/02/2024 2:52 PM [facility] DIFFERENTIAL TYPE AUTOMATED DIFFERENTIAL 11/02/2024 2:53 PM [facility] NEUTROPHILS % 48.1 % 11/02/2024 2:53 PM [facility] LYMPHOCYTES % 40.5 % 11/02/2024 2:53 PM [facility] MONOCYTES % 7.4 % 11/02/2024 2:53 PM [facility] EOSINOPHILS % 3.3 % 11/02/2024 2:53 PM [facility] BASOPHILS % 0.7 % 11/02/2024 2:53 PM [facility] IMMATURE GRANS % 0.0 % 11/02/2024 2:53 PM [facility] ABS. NEUTROPHILS 2.07 1.60 - 8.30 x10'3/uL 11/02/2024 2:53 PM [facility] ABS. LYMPHOCYTES 1.74 0.80 - 4.70 x10'3/uL 11/02/2024 2:53 PM [facility] ABS. MONOCYTES 0.32 0.00 - 1.50 x10'3/uL 11/02/2024 2:53 PM [facility] ABS. EOSINOPHILS 0.14 0.00 - 0.40 x10'3/uL 11/02/2024 2:53 PM [facility] ABS. BASOPHILS 0.03 0.00 - 0.20 x10'3/uL 11/02/2024 2:53 PM [facility] ABS. IMMATURE GRANULOCYTES 0.00 0.00 - 0.03 x10'3/uL 11/02/2024 2:53 PM [facility] 11/02/2024 9:22 AM MATCHBOOK ASSEMBLER Eddie Lamb MD LABORATORY Final Result [facility] [address] [place] [address], * (ABNORMAL) URINALYSIS AUTO DIP (11/02/2024) COLOR (U) YELLOW YELLOW [address], [place] TRANSPARENCY CLEAR CLEAR [address], [place] GLUCOSE (U) NEGATIVE NEGATIVE MG/DL MG-[address], [place] BILIRUBIN (U) NEGATIVE NEGATIVE MG-[address], [place] KETONES MG/DL (U) NEGATIVE NEGATIVE MG/DL MG-[address], [place] SPECIFIC GRAVITY (U) 1.020 1.001 - 1.035 MG[address], [place] BLOOD (U) NEGATIVE NEGATIVE MG-[address], [place] U PH 7.0 5.0 - 9.0 MG-[address], [place] PROTEIN (U) NEGATIVE NEGATIVE mg/dL MG-[address], [place] UROBILINOGEN 0.2 0.2 - 1.0 EU/dL = mg/dL MG-[address], [place] NITRITES NEGATIVE NEGATIVE MG/DL MG-[address], [place] LEUKOCYTES (U) NEGATIVE NEGATIVE MG-[address], [place] URINE SPECIMEN OBTAINED BY CLEAN CATCH PROCEDURE / Unknown 11/02/2024 Eddie Lamb MD URINE ORDERABLES Final Result [address], [place] [address] [place] [address], * HEPATITIS C ANTIBODY ([facility] ONLY) (04/19/2024 9:37 AM CDT) HEPATITIS C AB NON-REACTI VE NON-REACT ELISE 04/19/2024 6:[address] [facility] Comment: ANTIBODIES TO HCV NOT DETECTED. DOES NOT EXCLUDE THE POSSIBILITY OF EXPOSURE TO HCV. 04/19/2024 9:37 AM CDT Eddie Lamb MD LABORATORY Final Result [facility] [address] [place] [address], [id number] * MG DIAG IMPLANT LT DIGI (01/20/2024 [...] * COLOGUARD (EXACT SCIENCE) (10/30/2023 10:30 AM MATCHBOOK ASSEMBLER) COLOGUARD RESULT Negative Negative [employer] (CLIA #:[id number]) Comment: NEGATIVE TEST RESULT. A negative Cologuard [...] (Alexandra Michael al, N Engl J Med 2014;370(14):0484-9044) The normal value (reference range) for this assay is negative. COLOGUARD RE-SCREENING RECOMMENDATION: Periodic colorectal cancer screening is an important part of preventive healthcare for asymptomatic individuals at average risk for colorectal cancer. Following a negative Cologuard result, the [employer] and U.S. Multi-Society Task Force screening guidelines recommend a Cologuard re-screening interval of 3 years. References: [employer] Guideline for Colorectal Cancer Screening: https://www.cancer.org/cancer/iblpa-efpadx-oeyeuh/sbeuwzlpd-tjcowoabd-crwreef/ac s-rec ommendations.html.; You DK, Edyta MALDONADO, Tala LewisK, Colorectal Cancer Screening: Recommendations for Physicians and Patients from the U.S. Multi-Society Task Force on Colorectal Cancer Screening , Am J Gastroenterology 2017; 112:0143-3063. TEST DESCRIPTION: Composite algorithmic analysis of stool [...] (Alexandra Michael al, N Engl J Med 2014;370(14):7933-4223.) Cologuard may produce a false negative or false positive result (no colorectal cancer or precancerous polyp present at colonoscopy follow up). A negative Cologuard test result does not guarantee the absence of CRC or advanced adenoma (pre-cancer). The current Cologuard screening interval is every 3 years. ([employer] [employer] and U.S. Multi-Society Task Force). Cologuard performance data in a 10,000 patient pivotal study using colonoscopy as the reference method can be accessed at the following location: www.[employer].com/results. Additional description of the Cologuard test process, warnings and precautions can be found at www.cologuard.com. STOOL STOOL SPECIMEN / Unknown 10/30/2023 10:30 AM MATCHBOOK ASSEMBLER 10/31/2023 6:14 AM MATCHBOOK ASSEMBLER Eddie Lamb MD BODY FLUIDS AND STOOLS ORDERABLE S Final Result [employer] ([facility]) [address] [place] [address], [employer] (CLIA #:[id number]) [address] [place] [address] from Last 3 Months or Most Recently Relevant to [place] [id number] Care Teams Legal Technician Relationship Specialty Start Date End Date Eddie Lamb MD [address] [address] PCP - General INTERNAL MEDICINE 10/19/23
--- OUTSIDE RECORDS SUMMARY | 2024-11-13 11:34 | XMS_ITS | Encounter Summary ---
Author Organization [facility] Address [facility] [place] [address] Care Team Providers Care Fx Artist Name Role Phone Eddie Lamb MD Primary Care Provider [phone] Encounter Details Date Type Department Care Team (Latest Contact Info) Description 11/02/2023 [place] Heelshart Message Enc [facility] [place] [address] [address] [address] [place] [address] [place] [address] [place] [address] [address] [place], [place] [id number] Continued Jaw Pain Social History Tobacco Use [...] Sex Assigned at Female 11/02/2024 8:58 AM BAND LINING BANDER Legal Sex Female 1:23 PM BAND LINING BANDER Gender Identity Female 11/02/2024 8:58 AM BAND LINING BANDER Sexual Orientation Straight 11/02/2024 8: 58 AM BAND LINING BANDER documented as of this encounter Progress Notes * Silas Eli - 11/03/2023 4:09 PM CST Pts significant other called for pt today [place], and is waiting on a response from Dr. Lamb, I kindly let him know that the doctor has a response time, and she will answer their needs. LINING BANDER documented in this encounter Plan of Treatment Upcoming Encounters Date Type Department Care Team (Late st Contact Info) Description 12/28/2024 12:30 PM CDT Appointment [facility] [address] [address] George Leonard MD [facility] [address] [address] documented as of this encounter Visit Diagnoses Not on filedocumented in this encounter Additional Health Concerns Assessment Noted Time PHQ-9 Depression Total Score: 3 10/23/19 24 10:50 AM BAND LINING BANDER documented as of this encounter Care Teams Fx Artist Relationship Specialty Start Date End Date Eddie Lamb MD [address] [facility] [address] [place] [address] PCP - General INTERNAL MEDICINE 10/19/23 documented as of this encounter
--- OUTSIDE RECORDS SUMMARY | 2024-11-13 11:35 | XMS_ITS | Clinical Summary ---
Author Organization [facility] [address] Address [address] [place] [phone] Care Team Providers Care Fabrication Manager Name Role Phone George Leonard MD Unavailable [phone] Marii Aaron MD Unavailable [phone] Stiven Collins DO Unavailable [phone] Eddie Lamb MD Primary Care Provider [phone] Madison Stone MD Unavailable [phone] Allergies No known active allergies Medications ALPRAZolam [...] from 02/04/2024:Stage IB(cT1c, cN0, cM0, G3, ER-, ND-, HER2-) - Signed by Marii Aaron MD on 02/04/2024 Breast pain, right 12/29/2023 Mass of left breast 12/29/2023 Mixed hyperlipidemia 10/23/2023 Encounters Date Type Department Care Team Description 09/05/2024 Orders Only [facility] [address] [place] [phone] Kathy Jacobson RN Encounter for care related to vascular access port (Primary Dx); Malignant neoplasm of lower-inner quadrant of left breast in female, estrogen receptor negative (HCC) 08/29/2024 11:24 AM CARBIDE POWDER PROCESSOR - 08/29/2024 11:59 PM CARBIDE POWDER PROCESSOR Hospital Encounter [facility] [address] [place] [id number] Malignant neoplasm of lower-inner quadrant of left breast in female, estrogen receptor negative (HCC) Discharge Disposition: Discharge to home or self care 08/15/2024 9:00 AM CARBIDE POWDER PROCESSOR Infusion [facility] [place] at [address] [place] [phone] Prevention of chemotherapy-induce d neutropenia (Primary Dx); Malignant neoplasm of lower-inner quadrant of left breast in female, estrogen receptor negative (HCC) 08/15/2024 8:30 AM CARBIDE POWDER PROCESSOR Clinical Support [address] [address] Malignant neoplasm of lower-inner quadrant of left [...] on file Legal Sex Female 4:27 PM CARBIDE POWDER PROCESSOR Gender Identity Female 04/04/2024 8:02 PM CDT Sexual Orientation Straight 04/04/2024 8: 02 PM CDT 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 file Not on file Not on file Obstetrics History Last Filed Vital Signs Vital Sign Reading Time Taken Comments Blood Pressure 122/75 08/15/2024 9:03 AM CARBIDE POWDER PROCESSOR Pulse 97 08/15/2024 9:03 AM CARBIDE POWDER PROCESSOR Temperature 36.6 C (97.9 F) 08/15/2024 9:03 AM CARBIDE POWDER PROCESSOR Respiratory Rate 16 08/15/2024 9:03 AM CARBIDE POWDER PROCESSOR Oxygen Saturation 98% 08/15/2024 9:03 AM CARBIDE POWDER PROCESSOR Inhaled Oxygen Concentration - - Weight 51 kg (112 lb 7 oz) 11/03/2024 9:38 AM CS T Height 162.6 cm (5' 4 ) 11/03/2024 9:38 AM CARBIDE POWDER PROCESSOR Body Mass Index 19.3 11/03/2024 9:38 AM CARBIDE POWDER PROCESSOR Plan of Treatment Upcoming Encounters Date Type Department Care Team (Latest Contact Info) Description 11/14/2024 11:10 AM CDT Hospital Encounter [address] [address] George Leonard MD [address] [place] [phone] 11/14/2024 11:10 AM CDT Anesthesia Event [facility] [address] [place] [address] Paul Monte MD [address] [address] 11/14/2024 11:10 AM CDT - 11/14/2024 12:10 PM CDT Surgery [facility] [address] [place] [address] George Leonard MD [address] [place] [address] [phone] REMOVAL PORT A CATH Scheduled Procedures Name [...] this topic Medical Devices Implanted Type Area Yarn Inspector Device Identifier Shelf Expiration Date Model / Serial / Lot Breast Implant Bilateral: Breast Dom Michael Powerport Mri Airguard 8fr 1 Lumen Attachable Catheter Latex Free [id number] - [id number] Implanted:Qty: 1 on 05/13/2024 by Miguel Rodriguez MD at [facility] Right: Chest Dom [place] [id number] 11/28/2025 [id number] / / [id number] [employer] Billy Sealant Fibrin Patch [place] Set Frozen Prefilled Syringe Artiss 4ml [id number] - [id number] Implanted:Qty: 1 on 05/13/2024 by Miguel Rodriguez MD at [facility] Left: Breast [employer] Billy 08/30/2025 [id number] / / [id number] [employer] Cortiva 9.2x19.2cm [id number] - [id number] - [id number] Implanted:Qty: 1 on 05/13/2024 by Miguel Rodriguez MD at [facility] Left: Breast [employer] [id number] 03/30/2029 [id number] / [id number] / [id number] [employer] Cortiva 9.2x19.2cm [id number] - [id number] - [id number] Implanted:Qty: 1 on 05/13/2024 by Miguel Rodriguez MD at [facility] Left: Breast [employer] [id number] 03/30/2029 [id number] / [id number] / [id number] [employer] Implant Breast Round Moderate Projection Plus Smooth Opus Luxe 305cc Silicone Gel [id number] - [id number] - [id number] Implanted:Qty: 1 on 05/13/2024 by Miguel Rodriguez MD at [facility] Left: Breast [employer] [id number] 11/16/2025 [id number] / [id number] / Procedures Procedure Name Priority Date/Time Associated Diagnosis Comments CT CHEST ABDOMEN PELVIS W CONTRAST Schedule Routine, Read Routine (OP Routine) 08/29/2024 11:40 AM CARBIDE POWDER PROCESSOR Malignant neoplasm of lower-inner quadrant of left breast in female, estrogen receptor negative (HCC) EGFR STAT 08/15/2024 8:52 AM CARBIDE POWDER PROCESSOR Malignant neoplasm of lower-inner quadrant of left breast in female, estrogen receptor negative (HCC) Prevention of chemotherapy-induc ed neutropenia DIFFERENTIAL AUTO STAT 08/15/2024 8:5 2 AM CARBIDE POWDER PROCESSOR Malignant neoplasm of lower-inner quadrant of left breast in female, estrogen receptor negative (HCC) Prevention of chemotherapy-induc ed neutropenia CBC WITH AUTO DIFFERENTIAL STAT 08/15/2024 8:52 AM CARBIDE POWDER PROCESSOR Malignant neoplasm of lower-inner quadrant of left breast in female, estrogen receptor negative (HCC) Prevention of chemotherapy-induc ed neutropenia COMPREHENSIVE METABOLIC PANEL STAT 08/15/2024 8:52 AM CARBIDE POWDER PROCESSOR Malignant neoplasm of lower-inner quadrant of left breast in female, estrogen receptor negative (HCC) Prevention of chemotherapy-induc ed neutropenia from Last 3 Months Results * CT Chest Abdomen Pelvis W Contrast (08/29/2024 11:40 AM CARBIDE POWDER PROCESSOR) Anatomical Region Laterality Modality Body N/A Computed Tomogra phy 09/02/2024 1:41 PM CARBIDE POWDER PROCESSOR Narrative 09/02/2024 1:48 PM CARBIDE POWDER PROCESSOR EXAM DESCRIPTION: CT CHEST ABDOMEN PELVIS W [...] J Reno M.D. KN: ZAHIRA Report ID: [id number] Reading Location: [id number] Procedure Note Jose J Reno MD - [...] J Reno M.D. KN: ZAHIRA Report ID: [id number] Reading Location: [place] [address] us Stiven Collins DO IMG CT PROCEDURES Final Resu lt * eGFR (08/15/2024 8:52 AM CARBIDE POWDER PROCESSOR) eGFR >90 >=60 mL/min/1. 73 m2 Comment: [...] was last reviewed 2021. Testing performed by: [address] [address] Blood 08/15/2024 8:52 AM CARBIDE POWDER PROCESSOR 08/15/2024 8:55 AM CARBIDE POWDER PROCESSOR Stiven Collins DO LAB BLOOD ORDERABLES Final R esult [facility] [address] [facility] Department [place] [address] * (ABNORMAL) Differential, auto (08/15/2024 8:52 AM CARBIDE POWDER PROCESSOR) Neutrophil abs 8.3(H) 1.5 - 6.5 K/cumm Comment:Testing performed by : [address] [address] Imm gran abs 0.1 0.0 - 0.1 K/cumm [facility] Comment:Testing performed by : [address] [address] Lymphocyte abs 1.2 0.8 - 3.3 K/cumm [facility] Comment:Testing performed by : [address] [address] Monocyte abs 0.5 0.2 - 0.8 K/cumm [facility] Comment:Testing performed by : [address] [address] Eosinophil abs 0.0 0.0 - 0.5 K/cumm [facility] Comment:Testing performed by : [address] [address] Basophil abs 0.0 0.0 - 0.1 K/cumm [facility] Comment:Testing performed by : [address] [address] Neutrophil pct 82.7 % [facility] Comment: Interpretive Data Percent cell count reference ranges are not reported, since discordance with absolute values may lead to misinterpretation of CBC data. Current Interpretive Data was last revised on 2017. Testing performed by: [address] [address] Imm gran pct 0.6 % [facility] Comment: Interpretive Data Percent cell count reference ranges are not reported, since discordance with absolute values may lead to misinterpretation of CBC data. Current Interpretive Data was last revised on 2017. Testing performed by: [address] [address] Lymphocyte pct 11.9 % [facility] Comment: Interpretive Data Percent cell count reference ranges are not reported, since discordance with absolute values may lead to misinterpretation of CBC data. Current Interpretive Data was last revised on 2017. Testing performed by: [address] [address] Monocyte pct 4.7 % [facility] Comment: Interpretive Data Percent cell count reference ranges are not reported, since discordance with absolute values may lead to misinterpretation of CBC data. Current Interpretive Data was last revised on 2017. Testing performed by: [address] [address] Eosinophil pct 0.0 % [facility] Comment: Interpretive Data Percent cell count reference ranges are not reported, since discordance with absolute values may lead to misinterpretation of CBC data. Current Interpretive Data was last revised on 2017. Testing performed by: [address] [address] Basophil pct 0.1 % [facility] Comment: Interpretive Data Percent cell count reference ranges are not reported, since discordance with absolute values may lead to misinterpretation of CBC data. Current Interpretive Data was last revised on 2017. Testing performed by: [address] [address] Blood 08/15/2024 8:52 AM CARBIDE POWDER PROCESSOR 08/15/2024 8:55 AM CARBIDE POWDER PROCESSOR Stiven Collins DO LAB BLOOD ORDERABLES Final R esult [facility] [address] [facility] Department [place] [address] * (ABNORMAL) CBC with auto differential (08/15/2024 8:52 AM CARBIDE POWDER PROCESSOR) WBC 10.0(H) 3.8 - 9.9 K/cumm Comment:Testing performed by : [address] [address] Hgb 11.2(L) 11.9 - 15.5 g/dL [facility] Comment:Testing performed by : [address] [address] Hct 34.0(L) 35.6 - 45.5 % [facility] Comment:Testing performed by : [address] [address] Plt 270 150 - 400 K/cumm [facility] Comment:Testing performed by : [address] [address] MPV 8.6(L) 9.1 - 12.3 fL [facility] Comment:Testing performed by : [address] [address] RBC 3.95 3.90 - 5.20 M/cumm [facility] Comment:Testing performed by : [address] [address] MCV 86.1 81.3 - 96.4 fL [facility] Comment:Testing performed by : [address] [address] MCH 28.4 27.1 - 33.3 pg [facility] Comment:Testing performed by : [address] [address] MCHC 32.9 32.3 - 35.7 g/dL [facility] ELIAS Comment:Testing performed by : [facility], [address] [place] [address]., [address] RDW CV 16.8(H) 11.1 - 14.9 % [facility] Comment:Testing performed by : [address] [address] RDW SD 52.2(H) 35.7 - 48.1 fL [facility] Comment:Testing performed by : [address] [address] NRBC abs 0.00 0.00 - 0.01 K/cumm [facility] Comment:Testing performed by : [address] [address] Blood 08/15/2024 8:52 AM CARBIDE POWDER PROCESSOR 08/15/2024 8:55 AM CARBIDE POWDER PROCESSOR Stiven Collins DO LAB BLOOD ORDERABLES Final R esult [facility] Department [place] [address] * (ABNORMAL) Comprehensive metabolic panel (08/15/2024 8:52 AM CARBIDE POWDER PROCESSOR) Sodium 141 135 - 145 mmol/L Comment:Testing performed by : [address] [address] Potassium, pl 3.7 3.3 - 4.9 mmol/L [facility] Comment:Testing performed by : [address] [address] Chloride 106 97 - 110 mmol/L [facility] Comment:Testing performed by : [address] [address] CO2 24 22 - 32 mmol/L [facility] Comment:Testing performed by : [address] [address] Anion gap 11 2 - 15 mmol/L [facility] Comment:Testing performed by : [address] [address] BUN 18 6 - 25 mg/dL [facility] Comment:Testing performed by : [address] [address] Creatinine 0.50(L) 0.60 - 1.10 mg/dL [facility] Comment:Testing performed by : [address] [address] Glucose 186 70 - 199 mg/dL [facility] [...] was last revised 2022. Testing performed by: [address] [address] Calcium 9.2 8.5 - 10.3 mg/dL [facility] Comment:Testing performed by : [address] [address] Bilirubin, total 0.2 0.1 - 1.2 mg/dL [facility] Comment:Testing performed by : [address] [address] Protein, pl 6.3(L) 6.5 - 8.5 g/dL [facility] Comment:Testing performed by : [address] [address] Albumin 4.0 3.5 - 5.0 g/dL [facility] Comment:Testing performed by : [address] [address] Alk phos 58 40 - 130 Units/L [facility] Comment:Testing performed by : [address] [address] ALT 12 7 - 45 Units/L [facility] Comment:Testing performed by : [address] [address] AST 13 10 - 45 Units/L [facility] Comment:Testing performed by : [address] [place] [address] Blood 08/15/2024 8:52 AM CARBIDE POWDER PROCESSOR 08/15/2024 8:55 AM CARBIDE POWDER PROCESSOR Stiven Collins DO LAB BLOOD ORDERABLES Final R esult [facility] [address] [facility] Department [place] [address] from Last 3 Months Insurance [facility] CLAIMS [facility] CLAIMS [facility] CLAIMS Advance Directives For more information, please contact: [phone] * Full Code (Latest Code Status on File) Date Activated Date Inactivated Comments 05/13/2024 2:46 PM 05/14/2024 5:53 PM Care Teams Fabrication Manager Relationship Specialty Start Date End Date Eddie Lamb MD [address] [place], [place] [phone] PCP - General Internal Medicine 03/22/24 George Leonard MD [address] [facility] [address] [place], [place] [phone] Consulting Physician Surgery 01/29/24 Marii Aaron MD [address] [facility] [address] [place], [place] [phone] Radiation Oncologist Radiation Oncology 01/29/24 Stiven Collins DO [address] [facility] 180 [place], [place] [address] Medical Oncologist/Track Grinder Hematology and Oncology 02/04/24 Madison Stone MD [address] [place], [place] [phone] Nurse Practitioner 05/16/24
--- NOTE | 2024-11-13 11:45 | ED.UPPEXIN ---
HPI - Extremity Injury (Upper) General Chief Complaint: Extremity Injury, Upper Stated Complaint: L wrist injury Time Seen by Provider: 11/13/24 11:24 History of Present Illness HPI narrative: PATIENT HAD A FALL, COMPLAINING OF LEFT WRIST PAIN. SHE DENIES OTHER INJURIES. PATIENT WAS STEPPING BACK IN HER ROOM AND HIT HER BED CAUSED HER TO FALL BACKWARD LANDED ON THE LEFT WRIST. PRIOR TO ARRIVAL Related Data Allergies Allergy/AdvReac Type Severity Reaction Status Date / Time No Known Allergies Allergy Unverified 10/22/14 23:44 Review of Systems Review of Systems: All systems reviewed & are unremarkable except as noted in HPI and below PMFSH Social History Social History Smoking status: Never smoker Alcohol intake: never Exam Narrative: GENERAL APPEARANCE: WELL-DEVELOPED, WELL-NOURISHED SKIN: NORMAL COLOR HEAD: NORMOCEPHALIC, NONTRAUMATIC EYES: CLEAR CONJUNCTIVA ENT: OROPHARYNX NORMAL, EARS NORMAL, NOSE NORMAL NECK: SUPPLE, NONTENDER CHEST AND RESPIRATORY: AIRWAY PATENT, NO RESPIRATORY DISTRESS, NO ACCESSORY MUSCLE USE HEART: REGULAR RATE/RHYTHM ABDOMEN: SOFT, NONTENDER, NO ORGANOMEGALY, QUIET BOWEL SOUNDS VASCULAR: NORMAL PERIPHERAL PULSES, NORMAL CAPILLARY REFILL. MUSCULOSKELETAL: LEFT WRIST EXAM SHOWED DIFFUSE TENDERNESS, DEFORMITY, NEUROVASCULAR INTACT NEUROLOGIC: ALERT AND ORIENTED ?3, COLLATING MACHINE OPERATOR IS NORMAL TESTED, NO GROSS MOTOR DEFICIT Course Vital Signs Vital signs: Vital Signs Temperature 36.5 C 11/13/24 10:51 Pulse Rate 59 L 11/13/24 10:51 Respiratory Rate 18 11/13/24 10:51 Blood Pressure 154/80 H 11/13/24 10:51 Pulse Oximetry 100 11/13/24 10:51 Oxygen Delivery Room Air 11/13/24 10:51 Temperature 36.5 C 11/13/24 10:51 Pulse Rate 59 L 11/13/24 10:51 Respiratory Rate 18 11/13/24 10:51 Blood Pressure 154/80 H 11/13/24 10:51 Pulse Oximetry 100 11/13/24 10:51 Oxygen Delivery Room Air 11/13/24 10:51 MDM - Extremity Injury (Upper) MDM Narrative Medical decision making narrative: PATIENT HAD A FALL, VITAL SIGNS ARE STABLE X-RAY LEFT WRIST SHOWED FRACTURE SPLINT AND SLING STARTED Differential Diagnosis Differential diagnosis: Likely other (FRACTURE VERSUS SPRAIN/STRAIN) Imaging Data Radiologist's impression: Impressions Wrist X-Ray 11/13/24 11:15 IMPRESSION: Undisplaced fracture in the distal metaphysis of the left radius. Fracture ulnar styloid. Critical Care Time Critical Care Time Critical Care Time: No Discharge Plan Discharge Clinical Impression: Fracture of wrist Patient Disposition: Home, Self-Care Condition: Stable Instructions: Wrist Fracture in Adults (ED), How to Use a Sling (ED), Splint Care (ED) Additional Instructions: RETURN IF SYMPTOMS ARE WORSENING , CALL DR WAGNER FOR APPOINTMENT, TAKE IBUPROFEN NEEDED FOR ACHES AND PAIN, CONTINUE HOME MEDICATIONS. Patient Language: Mexican Prescriptions: New hydrocodone-acetaminophen 5-325 mg tablet 1 tablet PO Q4H PRN (Reason: pain) Qty: 20 0RF Follow-up/Referrals: Omid Wagner MD [Physician] - 11/14/24 Adonis,MD Eddie [Primary Care Provider] -
[2024-11-13 12:16] VITALS: BP 117/80; PULSE 61; RESP 18; O2SAT 100
== END 2024-11-13 12:18 | disposition home or self-care (01) ==
PROVIDERS: Emergency Provider Emergency Medicine; PCP Internal Medicine
DX: S52.502A Unspecified fracture of the lower end of left radius, initial encounter for closed fracture (principal); S52.615A Nondisplaced fracture of left ulna styloid process, initial encounter for closed fracture; W18.30XA Fall on same level, unspecified, initial encounter
CPT/HCPCS: 29125; 73110; 99284